=== PATIENT | male | born 1980 | race Caucasian/White ===

== ENCOUNTER 2016-12-02 13:16 | Inpatient (IN) | payer OTHER ==
[2016-12-02 14:27] VITALS: BMI 24.1
--- NOTE | 2016-12-02 15:39 | HP ---
COWS - Scale Resting Pulse: 1= [place] 81-100 Sweatin=Flushed/Facial Moisture Restless Observation: 1= Difficult to Sit Still Pupil Size: 1= Pupils >than Normal Bone or Joint Aches: 1= Mild Discomfort Runny Nose/ Eye Tearin= Nasal Congestion GI Upset > 30mins: 1= Stomach Cramp Tremor Observation: 1= Tremor [place], Not Seen Yawning Observation: 1= 1-2x During Session Anxiety or Irritability: 2=Irritable/Anxious Goose Flesh Skin: 0=Smooth Skin COWS Score: 12 Admission ROS BHS - HPI Chief Complaint: i need to stop using heroin and i need help. History of Present Illness: 36 y/o m pt with h/o heroin dep seeking detox . Exam Limitations: No Limitations - Ebola screening Have you traveled outside of the country in the last 21 days: No (N) Have you had contact with anyone from an Ebola affected area: No Have you been sick,other than usual withdrawal symptoms: No Do you have a fever: No - Review of Systems Constitutional: Changes in sleep EENT: reports: Nose Congestion Respiratory: reports: No Symptoms reported Cardiac: reports: No Symptoms Reported GI: reports: Nausea : reports: No Symptoms Reported Musculoskeletal: reports: Back Pain Neuro: reports: Headache Hematology: reports: No Symptoms Reported Psychiatric: reports: Anxious Other Systems: Reviewed and Negative Patient History - Patient Medical History Hx Anemia: No Hx Asthma: No Hx Chronic Obstructive Pulmonary Disease (COPD): No Hx Cancer: No Hx Cardiac Disorders: No Hx Congestive Heart Failure: No Hx Hypertension: No Hx Hypercholesterolemia: No Hx Pacemaker: No HX Cerebrovascular Accident: No Hx Seizures: No Hx Dementia: No Hx Diabetes: No Hx Gastrointestinal Disorders: No Hx Liver Disease: No Hx Genitourinary Disorders: No Hx Sexually Transmitted Disorders: No Hx Renal Disease (ESRD): No Hx Thyroid Disease: No Hx Human Immunodeficiency Virus (HIV): No Hx Hepatitis C: No Hx Depression: No (anxiety ) Hx Suicide Attempt: No Hx Bipolar Disorder: No Hx Schizophrenia: No - Patient Surgical History Past Surgical History: Yes Hx Orthopedic Surgery: Yes (rt knee surgery) - PPD History Documented Results: Negative w/o proof PPD to be Administered?: Yes - Reproductive History Patient is a Female of Child Bearing Age (11 -55 yrs old): No - Smoking Cessation Smoking history: Current every day smoker Have you smoked in the past 12 months: Yes Aproximately how many cigarettes per day: 20 Cigars Per Day: 0 Hx Chewing Tobacco Use: No Initiated information on smoking cessation: Yes 'Breaking Loose' booklet given: 12/02/16 - Substance & Tx. History Hx Alcohol Use: No Hx Substance Use: Yes Substance Use Type: Heroin Hx Substance Use Treatment: No - Substances Abused Heroin Route: Injection Frequency: Daily Amount used: 15 bags/d Age of first use: 36 Date of Last Use: 12/01/16 Family Disease History - Family Disease History Family History: Denies Admission Physical Exam [facility] - Vital Signs Vital Signs: Vital Signs - 24 hr 12/02/16 14:24 Temperature 98.3 F Pulse Rate 90 Respiratory 20 Rate Blood Pressure 120/74 - Physical General Appearance: Yes: Appropriately Dressed, Thin, Irritable, Sweating, Anxious HEENTM: Yes: Normocephalic, Normal Voice, LILA, Pharynx Normal, Nasal Congestion Respiratory: Yes: Chest Non-Tender, Lungs Clear, Normal Breath Sounds, No Respiratory Distress Neck: Yes: Supple, Trachea in good position Breast: Yes: Within Normal Limits Cardiology: Yes: Regular Rhythm, Regular Rate, S1, S2 Abdominal: Yes: Non Tender, Flat, Soft, Increased Bowel Sounds Genitourinary: Yes: Within Normal Limits Back: Yes: Decreased Range of Motion Musculoskeletal: Yes: Back pain Extremities: Yes: Within Normal Limits Neurological: Yes: buffer automatic II-XII NML intact, Fully Oriented, Alert, Motor Strength 5/5, Normal Response Integumentary: Yes: Moist Lymphatic: Yes: Within Normal Limits - Diagnostic (1) Opioid dependence with withdrawal Current Visit: Yes Status: Chronic (2) Nicotine dependence Current Visit: Yes Status: Chronic (3) Anxiety Current Visit: Yes Status: Chronic Cleared for Admission [facility] - Detox or Rehab [facility] Level of Care: Medically Managed Detox Regimen/Protocol: Methadone Claeared for Rehab Admission: No S Breath Alcohol Content Breath Alcohol Content: 0 Urine Drug Screen - Results Drug Screen Negative: No Urine Drug Screen Results: OPI-Opiates, MTD-Methadone
[2016-12-02] MEDS ORDERED: MAG HYDROX/AL HYDROX/SIMETH 30 ML UNIT-DOSE CUP PO PRN (15:54)
[2016-12-02] MEDS ORDERED: MAGNESIUM HYDROX 2400MG/30ML ORAL SUSPENSION 30 ML CUP PO PRN (15:54)
[2016-12-02] MEDS ORDERED: MAGNESIUM CITRATE 300 ML BOTTLE PO PRN (15:54)
[2016-12-02] MEDS ORDERED: LOPERAMIDE HCL 2 MG CAPSULE PO PRN (15:54)
[2016-12-02] MEDS ORDERED: ACETAMINOPHEN 325 MG TABLET (FP) PO PRN (15:54)
[2016-12-02] MEDS ORDERED: P-EPHED 60MG/TRIPROLIDI 2.5MG TABLET PO PRN (15:54)
[2016-12-02] MEDS ORDERED: IBUPROFEN 400 MG TABLET (FP) PO PRN (15:54)
[2016-12-02] MEDS ORDERED: MENTHOL/PHENOL 1 EACH UD MM PRN (15:54)
[2016-12-02] MEDS ORDERED: guaiFENesin/D-METHORPHAN HB 10 ML UNIT-DOSE CUPS PO PRN (15:54)
[2016-12-02] MEDS ORDERED: METHADONE HCL 10 MG TABLET (FOR DETOX USE ONLY) PO ONE ×2 (18:30→23:00)
[2016-12-02] MEDS: diazePAM 5 MG TABLET PO PRN ×2 (19:28→23:12)
[2016-12-02] MEDS: NICOTINE POLACRILEX 4 MG GUM BC PRN ×2 (20:23→22:40)
[2016-12-02] MEDS: THIAMINE HCL 100 MG TABLET (FP) PO SCH (22:35)
[2016-12-02] MEDS: diphenhydrAMINE HCL 50 MG CAPSULE PO PRN (22:35)
[2016-12-02 23:08] LABS: URINE APPEARANCE CLEAR; URINE BILIRUBIN NEGATIVE (NEGATIVE); URINE BLOOD NEGATIVE (NEGATIVE); URINE COLOR YELLOW; URINE GLUCOSE (UA) NEGATIVE (NEGATIVE); URINE KETONE NEGATIVE (NEGATIVE); URINE LEUK ESTERASE NEGATIVE (NEGATIVE); URINE NITRITE NEGATIVE (NEGATIVE); URINE PROTEIN NEGATIVE (NEGATIVE); URINE UROBILINOGEN NEGATIVE E.U./dl (0.2-1.0)
[2016-12-03] MEDS: diazePAM 5 MG TABLET PO PRN ×5 (06:11→22:32)
[2016-12-03] MEDS ORDERED: METHADONE HCL 10 MG TABLET (FOR DETOX USE ONLY) PO ONE (10:00)
[2016-12-03 10:04] LABS: MCH 28.5 pg (25.7-33.7); MCHC 32.9 g/dl (32.0-35.9); MEAN CELL VOLUME 86.8 fl (80-96); PLATELET COUNT 270 K/MM3 (134-434); RDW 14.5 % (11.9-15.9); WHITE BLOOD COUNT 7.9 K/mm3 (4.0-10.0)
[2016-12-03] MEDS: PRENATAL VITAMINS W/ FOLIC ACID TABLET (FP) PO SCH (10:25)
[2016-12-03] MEDS: NICOTINE 21 MG/24 HOURS TOPICAL PATCH TD SCH (10:25)
[2016-12-03] MEDS: NICOTINE POLACRILEX 4 MG GUM BC PRN ×4 (10:27→22:32)
[2016-12-03 10:31] LABS: ALBUMIN 4.1 g/dl (3.4-5.0); ALK PHOS 113 U/L (45-117); ANION GAP 13 (8-16); BILIRUBIN,TOTAL 0.2 mg/dL (0.2-1.0); CALCIUM 9.5 mg/dL (8.5-10.1); CO2 27 mmol/L (21-32); COCKROFT - GAULT 114.26; CREATININE 0.9 mg/dL (0.7-1.3); GLUCOSE,RANDOM 91 mg/dL (74-106); SGOT/AST 27 U/L (15-37); SGPT/ALT 27 U/L (12-78); TOT PROT 7.2 g/dl (6.4-8.2)
--- NOTE | 2016-12-03 11:49 | PN ---
BHS COWS - Scale Resting Pulse: 1= [place] 81-100 Sweatin= Chills/Flushing Restless Observation: 3= Extraneous Movement Pupil Size: 2= Moderately Dilated Bone or Joint Aches: 4=Acute Joint/Muscle Pain Runny Nose/ Eye Tearin= Nasal Congestion GI Upset > 30mins: 1= Stomach Cramp Tremor Observation of Outstretched Hands: 1= Tremor [place], Not Seen Yawning Observation: 2= >3x During Session Anxiety or Irritability: 2=Irritable/Anxious Goose Flesh Skin: 0=Smooth Skin COWS Score: 18 BHS Progress Note (SOAP) Subjective: ANXIETY,SWEATS/CHILLS,INTERMITTENT SLEEP. Objective: 12/03/16 11:48 Vital Signs Temperature 95.6 F L 12/03/16 10:20 Pulse Rate 97 H 12/03/16 10:20 Respiratory Rate 18 12/03/16 10:20 Blood Pressure 112/76 12/03/16 10:20 O2 Sat by Pulse Oximetry (%) Laboratory Last Values WBC 7.9 K/mm3 (4.0-10.0) 12/03/16 06:20 RBC 5.03 M/mm3 (4.00-5.60) 12/03/16 06:20 Hgb 14.4 GM/dL (11.7-16.9) 12/03/16 06:20 Hct 43.7 % (35.4-49) 12/03/16 06:20 MCV 86.8 fl (80-96) 12/03/16 06:20 MCHC 32.9 g/dl (32.0-35.9) 12/03/16 06:20 RDW 14.5 % (11.9-15.9) 12/03/16 06:20 Plt Count 270 K/MM3 (134-434) 12/03/16 06:20 MPV 9.0 fl (7.5-11.1) 12/03/16 06:20 Sodium 142 mmol/L (136-145) 12/03/16 06:20 Potassium 4.6 mmol/L (3.5-5.1) 12/03/16 06:20 Chloride 102 mmol/L (98-107) 12/03/16 06:20 Carbon Dioxide 27 mmol/L (21-32) 12/03/16 06:20 Anion Gap 13 (8-16) 12/03/16 06:20 BUN 13 mg/dL (7-18) 12/03/16 06:20 Creatinine 0.9 mg/dL (0.7-1.3) 12/03/16 06:20 Creat Clearance w eGFR > 60 (>60) 12/03/16 06:20 Random Glucose 91 mg/dL (74-106) 12/03/16 06:20 Calcium 9.5 mg/dL (8.5-10.1) 12/03/16 06:20 Total Bilirubin 0.2 mg/dL (0.2-1.0) 12/03/16 06:20 AST 27 U/L (15-37) 12/03/16 06:20 ALT 27 U/L (12-78) 12/03/16 06:20 Alkaline Phosphatase 113 U/L (45-117) 12/03/16 06:20 Total Protein 7.2 g/dl (6.4-8.2) 12/03/16 06:20 Albumin 4.1 g/dl (3.4-5.0) 12/03/16 06:20 Urine Color Yellow 12/02/16 21:47 Urine Appearance Clear 12/02/16 21:47 Urine pH 5.0 (5.0-8.0) 12/02/16 21:47 Ur Specific [place] 1.028 (1.001-1.035) 12/02/16 21:47 Urine Protein Negative (NEGATIVE) 12/02/16 21:47 Urine Glucose (UA) Negative (NEGATIVE) 12/02/16 21:47 Urine Ketones Negative (NEGATIVE) 12/02/16 21:47 Urine Blood Negative (NEGATIVE) 12/02/16 21:47 Urine Nitrite Negative (NEGATIVE) 12/02/16 21:47 Urine Bilirubin Negative (NEGATIVE) 12/02/16 21:47 Urine Urobilinogen Negative E.U./dl (0.2-1.0) 12/02/16 21:47 Ur Leukocyte Esterase Negative (NEGATIVE) 12/02/16 21:47 Assessment: 12/03/16 11:48 WITHDRAWAL SX Plan: CONTINUE DETOX
--- NOTE | 2016-12-03 12:34 | EKG ---
Test Reason : Blood Pressure : / mmHG Vent. Rate : 073 BPM Atrial Rate : 073 BPM P-R Int : 178 ms QRS Dur : 080 ms QT Int : 342 ms P-R-T Axes : 030 063 036 degrees QTc Int : 376 ms NORMAL SINUS RHYTHM NORMAL ECG NO PREVIOUS ECGS AVAILABLE Confirmed by ADRIANNA STODDARD, TERRI ([id number]) on 12/03/2016 12:33:49 PM Referred By: Ruddy Mayorga Confirmed By:TERRI RODAS MD
--- NOTE | 2016-12-03 14:26 | CONSULT ---
[facility] Psychiatric Consult - Data Date of interview: 12/03/16 Admission source: [facility] Identifying data: First admission to [facility] for this 36 y/o male seeking detox treatment for heroin dependence.Patient is single,a father of one, homeless,unemployed and supported on [facility] benefits. Substance Abuse History: - Smoking Cessation. Smoking history: Current every day smoker. Have you smoked in the past 12 months: Yes. Aproximately how many cigarettes per day: 20. Cigars Per Day: 0. Hx Chewing Tobacco Use: No. Initiated information on smoking cessation: Yes. 'Breaking Loose' booklet given : 12/02/16. - Substance & Tx. History. Hx Alcohol Use: No. Hx Substance Use: Yes. Substance Use Type: Heroin. Hx Substance Use Treatment: No. - Substances Abused. Heroin. Route: Injection. Frequency: Daily. Amount used: 15 bags/d. Age of first use: 36. Date of Last Use: 12/01/16. Confirmed by patient. Medical History: Patient endorses good general health. Psychiatric History: Patient denies. Physical/Sexual Abuse/Trauma History: Patient denies. Additional Comment: Urine Drug Screen Results: OPI-Opiates, MTD-Methadone.Noted. Mental Status Exam - Mental Status Exam Alert and Oriented to: Time, Place, Person Cognitive Function: Good Patient Appearance: Well Groomed Mood: Hopeful, Euthymic Affect: Appropriate, Normal Range Patient Behavior: Fatigued, Appropriate, Cooperative Speech Pattern: Clear, Appropriate Voice Loudness: Normal Thought Process: Goal Oriented Thought Disorder: Not Present Hallucinations: Denies Suicidal Ideation: Denies Homicidal Ideation: Denies Insight/Judgement: Fair Sleep: Fair Appetite: Good Muscle strength/Tone: Normal Gait/Station: Normal Psychiatric Findings - Problem List ([place] 1, 2,3) (1) Opioid dependence with withdrawal Current Visit: Yes Status: Acute (2) Nicotine dependence Current Visit: Yes Status: Acute - Initial Treatment Plan Initial Treatment Plan: Psychoeducation.Detoxification.Observation.
[2016-12-03 17:05] LABS: HIV 1 & 2 AB NEGATIVE; HIV 1 AGp24 NEGATIVE
[2016-12-03] MEDS: THIAMINE HCL 100 MG TABLET (FP) PO SCH (22:30)
[2016-12-03] MEDS: diphenhydrAMINE HCL 50 MG CAPSULE PO PRN (22:30)
[2016-12-04] MEDS: diazePAM 5 MG TABLET PO PRN ×5 (05:48→22:57)
[2016-12-04] MEDS ORDERED: METHADONE HCL 5 MG TABLET (FOR DETOX USE ONLY) PO ONE (10:00)
--- NOTE | 2016-12-04 10:26 | PN ---
S COWS - Scale Resting Pulse: 0= [place] 80 or Below Sweatin= Chills/Flushing Restless Observation: 3= Extraneous Movement Pupil Size: 2= Moderately Dilated Bone or Joint Aches: 4=Acute Joint/Muscle Pain Runny Nose/ Eye Tearin= Nasal Congestion GI Upset > 30mins: 1= Stomach Cramp Tremor Observation of Outstretched Hands: 2= Slight Tremor Visible Yawning Observation: 1= 1-2x During Session Anxiety or Irritability: 2=Irritable/Anxious Goose Flesh Skin: 0=Smooth Skin COWS Score: 17 BHS Progress Note (SOAP) Subjective: ANXIETY,TREMORS,SWEATS,INTERMITTENT SLEEP-BENADRYL NOT EFFECTIVE. WANTS F/U FOR INSOMNIA Objective: 12/04/16 10:25 Vital Signs Temperature 97.6 F 12/04/16 09:25 Pulse Rate 89 12/04/16 09:25 Respiratory Rate 18 12/04/16 09:25 Blood Pressure 123/81 12/04/16 09:25 O2 Sat by Pulse Oximetry (%) Laboratory Last Values WBC 7.9 K/mm3 (4.0-10.0) 12/03/16 06:20 RBC 5.03 M/mm3 (4.00-5.60) 12/03/16 06:20 Hgb 14.4 GM/dL (11.7-16.9) 12/03/16 06:20 Hct 43.7 % (35.4-49) 12/03/16 06:20 MCV 86.8 fl (80-96) 12/03/16 06:20 MCHC 32.9 g/dl (32.0-35.9) 12/03/16 06:20 RDW 14.5 % (11.9-15.9) 12/03/16 06:20 Plt Count 270 K/MM3 (134-434) 12/03/16 06:20 MPV 9.0 fl (7.5-11.1) 12/03/16 06:20 Sodium 142 mmol/L (136-145) 12/03/16 06:20 Potassium 4.6 mmol/L (3.5-5.1) 12/03/16 06:20 Chloride 102 mmol/L (98-107) 12/03/16 06:20 Carbon Dioxide 27 mmol/L (21-32) 12/03/16 06:20 Anion Gap 13 (8-16) 12/03/16 06:20 BUN 13 mg/dL (7-18) 12/03/16 06:20 Creatinine 0.9 mg/dL (0.7-1.3) 12/03/16 06:20 Creat Clearance w eGFR > 60 (>60) 12/03/16 06:20 Random Glucose 91 mg/dL (74-106) 12/03/16 06:20 Calcium 9.5 mg/dL (8.5-10.1) 12/03/16 06:20 Total Bilirubin 0.2 mg/dL (0.2-1.0) 12/03/16 06:20 AST 27 U/L (15-37) 12/03/16 06:20 ALT 27 U/L (12-78) 12/03/16 06:20 Alkaline Phosphatase 113 U/L (45-117) 12/03/16 06:20 Total Protein 7.2 g/dl (6.4-8.2) 12/03/16 06:20 Albumin 4.1 g/dl (3.4-5.0) 12/03/16 06:20 Urine Color Yellow 12/02/16 21:47 Urine Appearance Clear 12/02/16 21:47 Urine pH 5.0 (5.0-8.0) 12/02/16 21:47 Ur Specific [place] 1.028 (1.001-1.035) 12/02/16 21:47 Urine Protein Negative (NEGATIVE) 12/02/16 21:47 Urine Glucose (UA) Negative (NEGATIVE) 12/02/16 21:47 Urine Ketones Negative (NEGATIVE) 12/02/16 21:47 Urine Blood Negative (NEGATIVE) 12/02/16 21:47 Urine Nitrite Negative (NEGATIVE) 12/02/16 21:47 Urine Bilirubin Negative (NEGATIVE) 12/02/16 21:47 Urine Urobilinogen Negative E.U./dl (0.2-1.0) 12/02/16 21:47 Ur Leukocyte Esterase Negative (NEGATIVE) 12/02/16 21:47 RPR Titer Nonreactive (NONREACTIVE) 12/03/16 06:20 HIV 1&2 Antibody Screen Negative 12/03/16 06:20 HIV P24 Antigen Negative 12/03/16 06:20 Assessment: 12/04/16 10:25 WITHDRAWAL SX Plan: CONTINUE DETOX F/U WITH PSYCH RE:INSOMNIA WORKUP
[2016-12-04] MEDS: PRENATAL VITAMINS W/ FOLIC ACID TABLET (FP) PO SCH (10:37)
[2016-12-04] MEDS: NICOTINE 21 MG/24 HOURS TOPICAL PATCH TD SCH (10:38)
[2016-12-04] MEDS: NICOTINE POLACRILEX 4 MG GUM BC PRN ×4 (13:04→23:00)
[2016-12-04] MEDS: diphenhydrAMINE HCL 50 MG CAPSULE PO PRN (22:19)
[2016-12-04] MEDS: THIAMINE HCL 100 MG TABLET (FP) PO SCH (22:20)
[2016-12-05] MEDS: diazePAM 5 MG TABLET PO PRN ×3 (03:15→14:32)
[2016-12-05] MEDS: PRENATAL VITAMINS W/ FOLIC ACID TABLET (FP) PO SCH (09:14)
[2016-12-05] MEDS: NICOTINE 21 MG/24 HOURS TOPICAL PATCH TD SCH (09:15)
[2016-12-05] MEDS ORDERED: METHADONE HCL 5 MG TABLET (FOR DETOX USE ONLY) PO ONE (10:00)
[2016-12-05] MEDS ORDERED: METHADONE HCL 10 MG TABLET (FOR DETOX USE ONLY) PO ONE (10:00)
--- NOTE | 2016-12-05 13:30 | PN ---
BHS Progress Note (SOAP) Subjective: Sweating,interrupted sleep,restless Objective: 12/05/16 13:29 Vital Signs - 8 hr 12/05/16 12/05/16 06:44 10:35 Temperature 96.0 F L 97.1 F L Pulse Rate 74 92 H Respiratory 18 20 Rate Blood Pressure 114/81 119/81 Laboratory Tests 12/02/16 12/03/16 12/03/16 21:47 06:20 06:20 WBC 7.9 RBC 5.03 Hgb 14.4 Hct 43.7 MCV 86.8 MCHC 32.9 RDW 14.5 Plt Count 270 MPV 9.0 Sodium Potassium Chloride Carbon Dioxide Anion Gap BUN Creatinine Creat Clearance w eGFR Random Glucose Calcium Total Bilirubin AST ALT Alkaline Phosphatase Total Protein Albumin Urine Color Yellow Urine Appearance Clear Urine pH 5.0 Ur Specific [place] 1.028 Urine Protein Negative Urine Glucose (UA) Negative Urine Ketones Negative Urine Blood Negative Urine Nitrite Negative Urine Bilirubin Negative Urine Urobilinogen Negative Ur Leukocyte Esterase Negative RPR Titer HIV 1&2 Antibody Screen Negative HIV P24 Antigen Negative 12/03/16 12/03/16 06:20 06:20 WBC RBC Hgb Hct MCV MCHC RDW Plt Count MPV Sodium 142 Potassium 4.6 Chloride 102 Carbon Dioxide 27 Anion Gap 13 BUN 13 Creatinine 0.9 Creat Clearance w eGFR > 60 Random Glucose 91 Calcium 9.5 Total Bilirubin 0.2 AST 27 ALT 27 Alkaline Phosphatase 113 Total Protein 7.2 Albumin 4.1 Urine Color Urine Appearance Urine pH Ur Specific [place] Urine Protein Urine Glucose (UA) Urine Ketones Urine Blood Urine Nitrite Urine Bilirubin Urine Urobilinogen Ur Leukocyte Esterase RPR Titer Nonreactive HIV 1&2 Antibody Screen HIV P24 Antigen labs noted Assessment: 12/05/16 13:29 Withdrawal sx. Plan: Continue detox
--- NOTE | 2016-12-05 14:11 | PN ---
DOM[facility] Progress Note Note: Psychiatry Attending's note : Patient seen. Complaint : insomnia. Intervention : .Education about sleep hygiene. .Ambien 10 mg po hs. Informed of risk of parasomnias. No script for ambien at discharge. Mr Motley agrees with this careplan.
[2016-12-05] MEDS: NICOTINE POLACRILEX 4 MG GUM BC PRN ×3 (14:32→20:28)
[2016-12-05] MEDS: hydrOXYzine PAMOATE 25 MG CAPSULE (FP) PO PRN ×2 (17:20→22:22)
[2016-12-05] MEDS ORDERED: ZOLPIDEM TARTRATE 10 MG TABLET (PARK CARE ONLY) PO PRN (22:00)
[2016-12-05] MEDS: THIAMINE HCL 100 MG TABLET (FP) PO SCH (22:20)
[2016-12-06] MEDS ORDERED: METHADONE HCL 5 MG TABLET (FOR DETOX USE ONLY) PO ONE (06:00)
[2016-12-06] MEDS: hydrOXYzine PAMOATE 25 MG CAPSULE (FP) PO PRN (06:03)
[2016-12-06 06:34] VITALS: BP 118/77; PULSE 86; TEMP 95.9
[2016-12-06] MEDS ORDERED: METHADONE HCL 10 MG TABLET (FOR DETOX USE ONLY) PO ONE (10:00)
--- NOTE | 2016-12-06 17:02 | DS ---
[facility] Detox Discharge Summary Admission Date: 12/02/16 Discharge Date: 12/06/16 - History Present History: Opioid Dependence Additional Comments: ADVISED PATIENT TO FOLLOW-UP WITH [facility] AFTER DISCHARGE FROM DETOX FOR GENERAL MEDICAL ASSESSMENT AND FOR ABNORMAL ADMISSION LAB VALUES. Pertinent Past History: Anxiety. - Physical Exam Results Vital Signs: Vital Signs Temperature 95.9 F L 12/06/16 06:34 Pulse Rate 86 12/06/16 06:34 Respiratory Rate 16 12/06/16 06:34 Blood Pressure 118/77 12/06/16 06:34 O2 Sat by Pulse Oximetry (%) Pertinent Admission Physical Exam Findings: WITHDRAWAL SYMPTOMS. Laboratory Last Values WBC 7.9 K/mm3 (4.0-10.0) 12/03/16 06:20 RBC 5.03 M/mm3 (4.00-5.60) 12/03/16 06:20 Hgb 14.4 GM/dL (11.7-16.9) 12/03/16 06:20 Hct 43.7 % (35.4-49) 12/03/16 06:20 MCV 86.8 fl (80-96) 12/03/16 06:20 MCHC 32.9 g/dl (32.0-35.9) 12/03/16 06:20 RDW 14.5 % (11.9-15.9) 12/03/16 06:20 Plt Count 270 K/MM3 (134-434) 12/03/16 06:20 MPV 9.0 fl (7.5-11.1) 12/03/16 06:20 Sodium 142 mmol/L (136-145) 12/03/16 06:20 Potassium 4.6 mmol/L (3.5-5.1) 12/03/16 06:20 Chloride 102 mmol/L (98-107) 12/03/16 06:20 Carbon Dioxide 27 mmol/L (21-32) 12/03/16 06:20 Anion Gap 13 (8-16) 12/03/16 06:20 BUN 13 mg/dL (7-18) 12/03/16 06:20 Creatinine 0.9 mg/dL (0.7-1.3) 12/03/16 06:20 Creat Clearance w eGFR > 60 (>60) 12/03/16 06:20 Random Glucose 91 mg/dL (74-106) 12/03/16 06:20 Calcium 9.5 mg/dL (8.5-10.1) 12/03/16 06:20 Total Bilirubin 0.2 mg/dL (0.2-1.0) 12/03/16 06:20 AST 27 U/L (15-37) 12/03/16 06:20 ALT 27 U/L (12-78) 12/03/16 06:20 Alkaline Phosphatase 113 U/L (45-117) 12/03/16 06:20 Total Protein 7.2 g/dl (6.4-8.2) 12/03/16 06:20 Albumin 4.1 g/dl (3.4-5.0) 12/03/16 06:20 Urine Color Yellow 12/02/16 21:47 Urine Appearance Clear 12/02/16 21:47 Urine pH 5.0 (5.0-8.0) 12/02/16 21:47 Ur Specific [place] 1.028 (1.001-1.035) 12/02/16 21:47 Urine Protein Negative (NEGATIVE) 12/02/16 21:47 Urine Glucose (UA) Negative (NEGATIVE) 12/02/16 21:47 Urine Ketones Negative (NEGATIVE) 12/02/16 21:47 Urine Blood Negative (NEGATIVE) 12/02/16 21:47 Urine Nitrite Negative (NEGATIVE) 12/02/16 21:47 Urine Bilirubin Negative (NEGATIVE) 12/02/16 21:47 Urine Urobilinogen Negative E.U./dl (0.2-1.0) 12/02/16 21:47 Ur Leukocyte Esterase Negative (NEGATIVE) 12/02/16 21:47 RPR Titer Nonreactive (NONREACTIVE) 12/03/16 06:20 HIV 1&2 Antibody Screen Negative 12/03/16 06:20 HIV P24 Antigen Negative 12/03/16 06:20 LABS NOTED. - Treatment Hospital Course: Detox Protocol Followed, Detoxed Safely, Responded well, Discharged Condition Good Patient has Accepted a Rehab Referral to: NO - PT. DECLINES TO DO SO AT THIS TIME; NA/12-STEP PROGRAMS RECOMMENDED. - Medication Discharge Medications: Ambulatory Orders NK [No Known Home Medication] 12/02/16 - Diagnosis (1) Nicotine dependence Status: Chronic Qualifiers: Nicotine product type: cigarettes Substance use status: uncomplicated Qualified Code(s): F17.210 - Nicotine dependence, cigarettes, uncomplicated (2) Opioid dependence with withdrawal Status: Acute (3) Anxiety Status: Chronic - AMA Did Patient Leave Against Medical Advice: No
[2016-12-07] MEDS ORDERED: METHADONE HCL 5 MG TABLET (FOR DETOX USE ONLY) PO ONE (06:00)
== END 2016-12-06 09:46 | disposition home or self-care (01) | DRG 897 ==
LOC: YASAS 13:16 → Y3N 18:13
PROVIDERS: ADMIT Internal Medicine; ATTEND Internal Medicine
PROC: HZ2ZZZZ Detoxification Services for Substance Abuse Treatment (ICD-10-PCS; principal; 2016-12-06)
DX: F11.23 Opioid dependence with withdrawal (principal); F17.210 Nicotine dependence, cigarettes, uncomplicated; F41.9 Anxiety disorder, unspecified
CPT/HCPCS: 36415; 80053; 81003; 85027; 86593; 87389; 93005; 93010

== ENCOUNTER 2017-10-05 14:56 | Inpatient (IN) | payer OTHER ==
[2017-10-05 16:00] VITALS: BMI 26.3
--- NOTE | 2017-10-05 20:45 | HP ---
COWS - Scale Resting Pulse: 0= [place] 80 or Below Sweatin= Chills/Flushing Restless Observation: 1= Difficult to Sit Still Pupil Size: 1= Pupils >than Normal Bone or Joint Aches: 2= Severe Diffuse Aches Runny Nose/ Eye Tearin= Runny Nose/Eyes GI Upset > 30mins: 1= Stomach Cramp Tremor Observation: 0= None Yawning Observation: 1= 1-2x During Session Anxiety or Irritability: 2=Irritable/Anxious Goose Flesh Skin: 3=Piloerection COWS Score: 14 CIWA Score - CIWA Score Nausea/Vomitin-Mild Nausea/No Vomiting Muscle Tremors: 1-None Visible, but [place] Anxiety: 2 Agitation: 2 Paroxysmal Sweats: 2 Orientation: 0-Oriented Tacttile Disturbances: 1-Very Mild Itch/Numbness Auditory Disturbances: 1-Very Mild Visual Disturbances: 1-Very Mild Sensitivity Headache: 2-Mild CIWA-Ar Total Score: 13 Admission ROS BHS - HPI Chief Complaint: WITHDRAWAL SYMPTOMS Allergies/Adverse Reactions: Allergies Allergy/AdvReac Type Severity Reaction Status Date / Time No Known Allergies Allergy Verified 10/05/17 18:39 History of Present Illness: 37 Y.O. MAN WITH A HISTORY OF OPIOID AND ALCOHOL DEPENDENCE IS HERE SEEKING DETOX. HE REPORTS HE WAS LAST AT [facility] IN November, BUT LEFT AMA. DOES NOT HAVE A SIGNIFICANT PERIOD OF DRUG ABSTINENCE. - Ebola screening Have you traveled outside of the country in the last 21 days: No Have you had contact with anyone from an Ebola affected area: No Have you been sick,other than usual withdrawal symptoms: No - Review of Systems Constitutional: Chills, Loss of Appetite, Changes in sleep, Unexplained wgt Loss EENT: reports: Tearing, Nose Congestion Respiratory: reports: No Symptoms reported Cardiac: reports: No Symptoms Reported GI: reports: Abdominal cramping : reports: No Symptoms Reported Musculoskeletal: reports: Back Pain Integumentary: reports: No Symptoms Reported Endocrine: reports: No Symptoms Reported Hematology: reports: No Symptoms Reported Psychiatric: reports: Orientated x3, Anxious, other (H/O Panic Attacks) Other Systems: Reviewed and Negative Patient History - Patient Medical History Hx Anemia: No Hx Asthma: No Hx Chronic Obstructive Pulmonary Disease (COPD): No Hx Cancer: No Hx Cardiac Disorders: No Hx Congestive Heart Failure: No Hx Hypertension: No Hx Hypercholesterolemia: No Hx Pacemaker: No HX Cerebrovascular Accident: No Hx Seizures: No Hx Dementia: No Hx Diabetes: No Hx Gastrointestinal Disorders: No Hx Liver Disease: No Hx Genitourinary Disorders: No Hx Sexually Transmitted Disorders: No Hx Renal Disease (ESRD): No Hx Thyroid Disease: No Hx Human Immunodeficiency Virus (HIV): No Hx Hepatitis C: No Hx Depression: Yes (Anxiety and panic attacks ) Hx Suicide Attempt: No Hx Bipolar Disorder: No Hx Schizophrenia: No - Patient Surgical History Past Surgical History: Yes Hx Neurologic Surgery: No Hx Cataract Extraction: No Hx Cardiac Surgery: No Hx Lung Surgery: No Hx Breast Surgery: No Hx Breast Biopsy: No Hx Abdominal Surgery: No Hx Appendectomy: No Hx Cholecystectomy: No Hx Genitourinary Surgery: No Hx Section: No Hx Orthopedic Surgery: Yes (L knee surgery (2017)) Anesthesia Reaction: No - PPD History Previous Implant?: Yes Implanted On Prior [facility] Admission?: Yes Date: 12/04/16 Results: 0 PPD to be Administered?: No - Reproductive History Patient is a Female of Child Bearing Age (11 -55 yrs old): No - Smoking Cessation Smoking history: Current every day smoker Have you smoked in the past 12 months: Yes Aproximately how many cigarettes per day: 20 Cigars Per Day: 0 Hx Chewing Tobacco Use: No Initiated information on smoking cessation: Yes 'Breaking Loose' booklet given: 10/05/17 - Substance & Tx. History Hx Alcohol Use: Yes Hx Substance Use: Yes Substance Use Type: Alcohol, Heroin Hx Substance Use Treatment: Yes (Detox: 12/2016) - Substances Abused Alcohol Route: Oral Frequency: Daily Amount used: liqour- 1 pint, Age of first use: 17 Date of Last Use: 10/05/17 Heroin Route: Injection Frequency: Daily Amount used: 20 bags Age of first use: 36 Date of Last Use: 10/05/17 Family Disease History - Family Disease History Family Disease History: Diabetes: Father (Alcohol Dependence), Mother, Heart Disease: Father, Other: Father Admission Physical Exam BHS - Vital Signs Vital Signs: Vital Signs - 24 hr 10/05/17 15:58 Temperature 96.2 F L Pulse Rate 73 Respiratory 18 Rate Blood Pressure 134/79 - Physical General Appearance: Yes: Anxious HEENTM: Yes: Hearing grossly Normal, Normal ENT Inspection, Normocephalic, Normal Voice Respiratory: Yes: Chest Non-Tender, Lungs Clear, Normal Breath Sounds, No Respiratory Distress, No Accessory Muscle Use Neck: Yes: No masses,lesions,Nodules, Trachea in good position Breast: Yes: Breast Exam Deferred Cardiology: Yes: Regular Rhythm, Regular Rate Abdominal: Yes: Normal Bowel Sounds, Non Tender, Flat Genitourinary: Yes: Other (NO COMPLAINTS REPORTED) Back: Yes: Normal Inspection Musculoskeletal: Yes: full range of Motion, Gait Steady, Pelvis Stable Extremities: Yes: Normal Capillary Refill, Normal Inspection, Normal Range of Motion, Non-Tender Neurological: Yes: Alert, Motor Strength 5/5, Normal Mood/Affect, Normal Response Integumentary: Yes: Normal Color, Dry, Warm, Track [place] Lymphatic: Yes: Within Normal Limits - Diagnostic (1) Alcohol dependence with uncomplicated withdrawal Current Visit: Yes Status: Chronic (2) Opioid dependence with withdrawal Current Visit: Yes Status: Chronic (3) Nicotine dependence Current Visit: Yes Status: Chronic Qualifiers: Nicotine product type: cigarettes Substance use status: uncomplicated Qualified Code(s): F17.210 - Nicotine dependence, cigarettes, uncomplicated Cleared for Admission [facility] - Detox or Rehab [facility] Level of Care: Medically Managed Detox Regimen/Protocol: Methadone/Valium [facility] Breath Alcohol Content Breath Alcohol Content: 0 Urine Drug Screen - Results Drug Screen Negative: No Urine Drug Screen Results: THC-Marijuana, OPI-Opiates, MTD-Methadone, TCA- Tricyclic Antidepress, OXY-Oxycodone
[2017-10-05] MEDS ORDERED: diphenhydrAMINE HCL 25 MG CAPSULE (FP) PO PRN (20:51)
[2017-10-05] MEDS ORDERED: ACETAMINOPHEN 325 MG TABLET (FP) PO PRN (20:52)
[2017-10-05] MEDS ORDERED: MENTHOL/PHENOL 1 EACH UD MM PRN (20:52)
[2017-10-05] MEDS ORDERED: METHADONE HCL 10 MG TABLET (FOR DETOX USE ONLY) PO ONE ×2 (20:52→23:00)
[2017-10-05] MEDS ORDERED: diazePAM 5 MG TABLET PO ONE (20:52)
[2017-10-05] MEDS ORDERED: MAGNESIUM CITRATE 300 ML BOTTLE PO PRN (20:52)
[2017-10-05] MEDS ORDERED: LOPERAMIDE HCL 2 MG CAPSULE PO PRN (20:52)
[2017-10-05] MEDS ORDERED: P-EPHED 60MG/TRIPROLIDI 2.5MG TABLET PO PRN (20:52)
[2017-10-05] MEDS ORDERED: hydrOXYzine PAMOATE 50 MG CAPSULE (FP) PO PRN (20:52)
[2017-10-05] MEDS ORDERED: MAG HYDROX/AL HYDROX/SIMETH 30 ML UNIT-DOSE CUP PO PRN (20:52)
[2017-10-05] MEDS ORDERED: IBUPROFEN 400 MG TABLET (FP) PO PRN (20:52)
[2017-10-05] MEDS ORDERED: MAGNESIUM HYDROX 2400MG/30ML ORAL SUSPENSION 30 ML CUP PO PRN (20:52)
[2017-10-05] MEDS ORDERED: NICOTINE POLACRILEX 2 MG GUM BC PRN (20:52)
[2017-10-05] MEDS ORDERED: guaiFENesin/D-METHORPHAN HB 10 ML UNIT-DOSE CUPS PO PRN (20:52)
[2017-10-05] MEDS ORDERED: THIAMINE HCL 100 MG TABLET (FP) PO SCH (22:00)
[2017-10-05] MEDS: diazePAM 5 MG TABLET PO SCH (22:40)
[2017-10-06] MEDS: diazePAM 5 MG TABLET PO SCH ×2 (05:10→15:21)
[2017-10-06] MEDS ORDERED: PRENATAL VITAMINS W/ FOLIC ACID TABLET (FP) PO SCH (10:00)
[2017-10-06] MEDS ORDERED: NICOTINE 21 MG/24 HOURS TOPICAL PATCH TD SCH (10:00)
[2017-10-06] MEDS ORDERED: METHADONE HCL 10 MG TABLET (FOR DETOX USE ONLY) PO SCH (10:00)
[2017-10-06 10:03] LABS: HEMATOCRIT 42.1 % (35.4-49); HEMOGLOBIN 13.8 GM/dL (11.7-16.9); MCH 28.2 pg (25.7-33.7); MCHC 32.8 g/dl (32.0-35.9); MEAN PLT VOLUME 8.5 fl (7.5-11.1); PLATELET COUNT 238 K/MM3 (134-434); RDW 14.7 % (11.9-15.9); WHITE BLOOD COUNT 7.8 K/mm3 (4.0-10.0)
--- NOTE | 2017-10-06 10:25 | PN ---
[facility] CIWA - CIWA Score Nausea/Vomitin-No Nausea/No Vomiting Muscle Tremors: 4-Moderate,w/Arms Extend Anxiety: 4-Mod. Anxious/Guarded Agitation: 4-Moderately Restless Paroxysmal Sweats: 1-Minimal Palms Moist Orientation: 0-Oriented Tacttile Disturbances: 3-Moderate Itch/Numb/Burn Auditory Disturbances: 0-None Visual Disturbances: 0-None Headache: 0-None Present CIWA-Ar Total Score: 16 S COWS - Scale Resting Pulse: 0= SD 80 or Below Sweatin= Chills/Flushing Restless Observation: 3= Extraneous Movement Pupil Size: 0= Normal to Room Light Bone or Joint Aches: 4=Acute Joint/Muscle Pain Runny Nose/ Eye Tearin= None GI Upset > 30mins: 0= None Tremor Observation of Outstretched Hands: 2= Slight Tremor Visible Yawning Observation: 1= 1-2x During Session Anxiety or Irritability: 2=Irritable/Anxious Goose Flesh Skin: 0=Smooth Skin COWS Score: 13 S Progress Note (SOAP) Subjective: ANXIETY,SWEATS/CHILLS,INTERMITTENT SLEEP. Objective: 10/06/17 10:24 Vital Signs Temperature 96.7 F L 10/06/17 09:42 Pulse Rate 76 10/06/17 09:42 Respiratory Rate 18 10/06/17 09:42 Blood Pressure 116/77 10/06/17 09:42 O2 Sat by Pulse Oximetry (%) Laboratory Last Values WBC 7.8 K/mm3 (4.0-10.0) 10/06/17 07:30 RBC 4.90 M/mm3 (4.00-5.60) 10/06/17 07:30 Hgb 13.8 GM/dL (11.7-16.9) 10/06/17 07:30 Hct 42.1 % (35.4-49) 10/06/17 07:30 MCV 86.0 fl (80-96) 10/06/17 07:30 MCH 28.2 pg (25.7-33.7) 10/06/17 07:30 MCHC 32.8 g/dl (32.0-35.9) 10/06/17 07:30 RDW 14.7 % (11.9-15.9) 10/06/17 07:30 Plt Count 238 K/MM3 (134-434) 10/06/17 07:30 MPV 8.5 fl (7.5-11.1) 10/06/17 07:30 OTHER LABS PENDING. Assessment: 10/06/17 10:25 WITHDRAWAL SX Plan: CONTINUE DETOX
[2017-10-06 10:27] LABS: ALBUMIN 3.5 g/dl (3.4-5.0); ALK PHOS 84 U/L (45-117); ANION GAP 7 (8-16); BILIRUBIN,TOTAL 0.1 mg/dL (0.2-1.0); BLOOD UREA NITROGEN 13 mg/dL (7-18); CALCIUM 8.8 mg/dL (8.5-10.1); CHLORIDE 104 mmol/L (98-107); CO2 32 mmol/L (21-32); GLUCOSE,RANDOM 83 mg/dL (74-106); POTASSIUM 4.4 mmol/L (3.5-5.1); SGOT/AST 16 U/L (15-37); SGPT/ALT 25 U/L (12-78); SODIUM 143 mmol/L (136-145); TOT PROT 6.3 g/dl (6.4-8.2)
[2017-10-06] MEDS: diazePAM 5 MG TABLET PO PRN ×2 (12:39→17:18)
--- NOTE | 2017-10-06 13:58 | EKG ---
Test Reason : Blood Pressure : / mmHG Vent. Rate : 073 BPM Atrial Rate : 073 BPM P-R Int : 182 ms QRS Dur : 072 ms QT Int : 346 ms P-R-T Axes : 041 056 026 degrees QTc Int : 381 ms NORMAL SINUS RHYTHM NORMAL ECG WHEN COMPARED WITH ECG OF 02-DEC-2016 18:37, NO SIGNIFICANT CHANGE WAS FOUND Confirmed by MD Reyez Edward ([id number]) on 10/06/2017 1:57:58 PM Referred By: Confirmed By:Yaniv Reyez MD
[2017-10-06 17:54] LABS: URINE APPEARANCE TURBID; URINE BILIRUBIN NEGATIVE (NEGATIVE); URINE BLOOD NEGATIVE (NEGATIVE); URINE COLOR AMBER; URINE GLUCOSE (UA) NEGATIVE (NEGATIVE); URINE KETONE NEGATIVE (NEGATIVE); URINE LEUK ESTERASE NEGATIVE (NEGATIVE); URINE NITRITE NEGATIVE (NEGATIVE); URINE PROTEIN NEGATIVE (NEGATIVE); URINE UROBILINOGEN NEGATIVE mg/dL (0.2-1.0)
[2017-10-06 18:30] VITALS: BP 113/68; PULSE 78; TEMP 97
--- NOTE | 2017-10-06 18:36 | DS ---
[facility] Detox Discharge Summary Admission Date: 10/05/17 Discharge Date: 10/06/17 - History Present History: Alcohol Dependence, Opioid Dependence - Physical Exam Results Vital Signs: Vital Signs Temperature 97.0 F L 10/06/17 18:29 Pulse Rate 78 10/06/17 18:29 Respiratory Rate 18 10/06/17 18:29 Blood Pressure 113/68 10/06/17 18:29 O2 Sat by Pulse Oximetry (%) Pertinent Admission Physical Exam Findings: Laboratory Last Values WBC 7.8 K/mm3 (4.0-10.0) 10/06/17 07:30 RBC 4.90 M/mm3 (4.00-5.60) 10/06/17 07:30 Hgb 13.8 GM/dL (11.7-16.9) 10/06/17 07:30 Hct 42.1 % (35.4-49) 10/06/17 07:30 MCV 86.0 fl (80-96) 10/06/17 07:30 MCH 28.2 pg (25.7-33.7) 10/06/17 07:30 MCHC 32.8 g/dl (32.0-35.9) 10/06/17 07:30 RDW 14.7 % (11.9-15.9) 10/06/17 07:30 Plt Count 238 K/MM3 (134-434) 10/06/17 07:30 MPV 8.5 fl (7.5-11.1) 10/06/17 07:30 Sodium 143 mmol/L (136-145) 10/06/17 07:30 Potassium 4.4 mmol/L (3.5-5.1) 10/06/17 07:30 Chloride 104 mmol/L (98-107) 10/06/17 07:30 Carbon Dioxide 32 mmol/L (21-32) 10/06/17 07:30 Anion Gap 7 (8-16) L 10/06/17 07:30 BUN 13 mg/dL (7-18) 10/06/17 07:30 Creatinine 1.0 mg/dL (0.7-1.3) 10/06/17 07:30 Creat Clearance w eGFR > 60 (>60) 10/06/17 07:30 Random Glucose 83 mg/dL (74-106) 10/06/17 07:30 Calcium 8.8 mg/dL (8.5-10.1) 10/06/17 07:30 Total Bilirubin 0.1 mg/dL (0.2-1.0) L D 10/06/17 07:30 AST 16 U/L (15-37) D 10/06/17 07:30 ALT 25 U/L (12-78) 10/06/17 07:30 Alkaline Phosphatase 84 U/L (45-117) D 10/06/17 07:30 Total Protein 6.3 g/dl (6.4-8.2) L 10/06/17 07:30 Albumin 3.5 g/dl (3.4-5.0) 10/06/17 07:30 RPR Titer Nonreactive (NONREACTIVE) 10/06/17 07:30 - Medication Discharge Medications: Ambulatory Orders NK [No Known Home Medication] 12/02/16 - Diagnosis (1) Alcohol dependence with uncomplicated withdrawal Current Visit: Yes Status: Acute (2) Nicotine dependence Current Visit: Yes Status: Acute Qualifiers: Nicotine product type: cigarettes Substance use status: in withdrawal Qualified Code(s): F17.213 - Nicotine dependence, cigarettes, with withdrawal (3) Opioid dependence with withdrawal Current Visit: Yes Status: Acute - AMA Did Patient Leave Against Medical Advice: Yes (Patient certified personal finance counselor on benefits and risk.)
--- NOTE | 2017-10-06 19:18 | CONSULT ---
[facility] Psychiatric Consult - Data Date of interview: 10/06/17 Admission source: [facility] Identifying data: Patient not found on unit.Informed by staff that Mr Motley had left the program earlier.See staff's notes for details.
[2017-10-07] MEDS ORDERED: METHADONE HCL 5 MG TABLET (FOR DETOX USE ONLY) PO SCH (10:00)
[2017-10-07] MEDS ORDERED: diazePAM 5 MG TABLET PO SCH (10:00)
[2017-10-09] MEDS ORDERED: METHADONE HCL 10 MG TABLET (FOR DETOX USE ONLY) PO SCH (10:00)
[2017-10-09] MEDS ORDERED: diazePAM 5 MG TABLET PO SCH (10:00)
[2017-10-10] MEDS ORDERED: METHADONE HCL 5 MG TABLET (FOR DETOX USE ONLY) PO SCH (06:00)
== END 2017-10-06 18:37 | disposition left against medical advice (07) | DRG 894 ==
LOC: YASAS 14:56 → Y3N 18:07
PROVIDERS: ADMIT Internal Medicine; ATTEND Internal Medicine
PROC: HZ2ZZZZ Detoxification Services for Substance Abuse Treatment (ICD-10-PCS; principal; 2017-10-05)
DX: F11.23 Opioid dependence with withdrawal (principal); F10.230 Alcohol dependence with withdrawal, uncomplicated; F17.213 Nicotine dependence, cigarettes, with withdrawal
CPT/HCPCS: 36415; 80053; 81003; 85027; 86593; 93005; 93010

== ENCOUNTER 2018-05-10 18:41 | Inpatient (IN) | payer OTHER ==
[2018-05-10 22:50] VITALS: BMI 23.1
--- NOTE | 2018-05-10 23:54 | HP ---
COWS - Scale Resting Pulse: 0= [place] 80 or Below Sweatin= No chills or Flushing Restless Observation: 1= Difficult to Sit Still Pupil Size: 0= Normal to Room Light Bone or Joint Aches: 4=Acute Joint/Muscle Pain Runny Nose/ Eye Tearin= Runny Nose/Eyes GI Upset > 30mins: 1= Stomach Cramp Tremor Observation: 0= None Yawning Observation: 0= None Anxiety or Irritability: 2=Irritable/Anxious Goose Flesh Skin: 0=Smooth Skin COWS Score: 10 CIWA Score - CIWA Score Nausea/Vomitin-No Nausea/No Vomiting Muscle Tremors: None Anxiety: 4-Mod. Anxious/Guarded Agitation: 4-Moderately Restless Paroxysmal Sweats: No Perspiration Orientation: 0-Oriented Tacttile Disturbances: 0-None Auditory Disturbances: 0-None Visual Disturbances: 0-None Headache: 0-None Present CIWA-Ar Total Score: 8 Admission ROS S - HPI Chief Complaint: SEEKING DETOX OF MMTP AND BENZO WITH C/O WORSENING WITHDRAWAL SX'S Allergies/Adverse Reactions: Allergies Allergy/AdvReac Type Severity Reaction Status Date / Time No Known Allergies Allergy Verified 11/06/17 18:31 History of Present Illness: 37 Y.O. MALE WITH OPIOID AND BENZO DEPENDENCE HERE FOR DETOX. CLIENT IS CURRENT ON MMTP AT [facility] BUT WAS REFERRED FOR DETOX OFF THE METHADONE HE WOULD LIKE TO TRY SUBOXONE. CLIENT PRESENTED REFERRAL LETTER STATING THE AFORMENTIONED. HI IS PRESENTLY ON METHADONE 40 MG DAILY. BUT REFUSED TO MEDICATE TODAY. HE IS KNOWN TO THIS PROGRAM. LAST ADMIT 11/06/2017. DENIES ANY SIGNIFICANT PERIOD OF CLEAN TIME. DEENIES HX/O OVERDOSE/ SEIZURES/ AVH/ PAST/PRESENT SI/HI. DENIES LEGALS PMHX-DENIES PSYCH- PANIC ATTACKS/ ANXIETY - Ebola screening Have you traveled outside of the country in the last 21 days: No (N) Have you had contact with anyone from an Ebola affected area: No Have you been sick,other than usual withdrawal symptoms: No Do you have a fever: No - Review of Systems Constitutional: Malaise, Changes in sleep EENT: reports: No Symptoms Reported Respiratory: reports: No Symptoms reported Cardiac: reports: No Symptoms Reported GI: reports: Poor Fluid Intake, Abdominal cramping : reports: No Symptoms Reported Musculoskeletal: reports: Back Pain Integumentary: reports: No Symptoms Reported Neuro: reports: No Symptoms reported Endocrine: reports: No Symptoms Reported Hematology: reports: No Symptoms Reported Psychiatric: reports: Anxious, Depressed Other Systems: Reviewed and Negative Patient History - Patient Medical History Hx Anemia: No Hx Asthma: No Hx Chronic Obstructive Pulmonary Disease (COPD): No Hx Cancer: No Hx Cardiac Disorders: No Hx Congestive Heart Failure: No Hx Hypertension: No Hx Hypercholesterolemia: No Hx Pacemaker: No HX Cerebrovascular Accident: No Hx Seizures: No Hx Dementia: No Hx Diabetes: No Hx Gastrointestinal Disorders: No Hx Liver Disease: No Hx Genitourinary Disorders: No Hx Sexually Transmitted Disorders: No Hx Renal Disease (ESRD): No Hx Thyroid Disease: No Hx Human Immunodeficiency Virus (HIV): No Hx Hepatitis C: No Hx Depression: Yes (Anxiety and panic attacks ) Hx Suicide Attempt: No Hx Bipolar Disorder: No Hx Schizophrenia: No Other Medical History: DENIES - Patient Surgical History Past Surgical History: Yes Hx Neurologic Surgery: No Hx Cataract Extraction: No Hx Cardiac Surgery: No Hx Lung Surgery: No Hx Breast Surgery: No Hx Breast Biopsy: No Hx Abdominal Surgery: No Hx Appendectomy: No Hx Cholecystectomy: No Hx Genitourinary Surgery: No Hx Section: No Hx Orthopedic Surgery: Yes (L knee surgery (2017)) Anesthesia Reaction: No - PPD History Previous Implant?: Yes Documented Results: Negative w/proof Implanted On Prior [facility] Admission?: Yes Date: 12/04/16 Results: 0 PPD to be Administered?: Yes - Smoking Cessation Smoking history: Current every day smoker Have you smoked in the past 12 months: Yes Aproximately how many cigarettes per day: 20 Cigars Per Day: 0 Hx Chewing Tobacco Use: No Initiated information on smoking cessation: Yes 'Breaking Loose' booklet given: 05/10/18 - Substance & Tx. History Hx Alcohol Use: Yes Hx Substance Use: Yes Substance Use Type: Alcohol, Heroin, Marijuana, Prescribed (MMTP 40 MG), Tranquilizers (XANX) Hx Substance Use Treatment: Yes ([facility]) - Substances Abused Heroin Route: Injection Frequency: Daily Amount used: 5 BAGS Age of first use: 35 Date of Last Use: 05/10/18 LIQUOR/BEER Route: Oral Frequency: Daily Amount used: 1/2 GALLON/6 BEERS Age of first use: 18 Date of Last Use: 05/07/18 Xanax Route: Oral Frequency: 3-6 times per week Amount used: 4mg Age of first use: 35 Date of Last Use: 05/08/18 thc Route: Smoking Frequency: 1-3 times last 30 days Amount used: 1 joint Age of first use: 16 Date of Last Use: 05/08/18 rx-mtd Route: Oral Frequency: Daily Amount used: 40mg Age of first use: 37 Date of Last Use: 05/08/18 Family Disease History - Family Disease History Family Disease History: Diabetes: Father (Alcohol Dependence), Mother, Heart Disease: Father, Other: Father Admission Physical Exam S - Vital Signs Vital Signs: Vital Signs - 24 hr 05/10/18 05/10/18 22:46 22:49 Temperature 97.3 F L 97.3 F L Pulse Rate 72 72 Respiratory 18 18 Rate Blood Pressure 128/73 - Physical General Appearance: Yes: Appropriately Dressed, Mild Distress, Irritable HEENTM: Yes: EOMI, Normocephalic, Normal Voice, LILA, Pharynx Normal Respiratory: Yes: Chest Non-Tender, Lungs Clear, Normal Breath Sounds, No Respiratory Distress, No Accessory Muscle Use Neck: Yes: No masses,lesions,Nodules, Supple, Trachea in good position Breast: Yes: Breast Exam Deferred Cardiology: Yes: Regular Rhythm, Regular Rate, S1, S2 Abdominal: Yes: Normal Bowel Sounds, Non Tender, Flat, Soft Genitourinary: Yes: Other (no c/o) Back: Yes: Normal Inspection Musculoskeletal: Yes: full range of Motion, Gait Steady Extremities: Yes: Normal Range of Motion, Non-Tender Neurological: Yes: Fully Oriented, Alert, Motor Strength 5/5, Depressed Affect Integumentary: Yes: Dry, Warm Lymphatic: Yes: Within Normal Limits - Diagnostic (1) Cannabis abuse, uncomplicated Current Visit: Yes Status: Acute (2) Alcohol dependence with uncomplicated withdrawal Current Visit: Yes Status: Acute (3) Nicotine dependence Current Visit: Yes Status: Chronic Qualifiers: Nicotine product type: cigarettes Substance use status: in withdrawal Qualified Code(s): F17.213 - Nicotine dependence, cigarettes, with withdrawal (4) Opioid dependence with withdrawal Current Visit: Yes Status: Acute (5) Sedative, hypnotic or anxiolytic dependence with withdrawal, unspecified Current Visit: Yes Status: Acute (6) Substance induced mood disorder Current Visit: Yes Status: Suspected (7) Anxiety Current Visit: Yes Status: Suspected Cleared for Admission [facility] - Detox or Rehab [facility] Level of Care: Medically Managed Detox Regimen/Protocol: Methadone/Valium Claeared for Rehab Admission: No [facility] Breath Alcohol Content Breath Alcohol Content: 0 Urine Drug Screen - Results Drug Screen Negative: No Urine Drug Screen Results: THC-Marijuana, OPI-Opiates, BZO-Benzodiazepines, MTD- Methadone, OXY-Oxycodone
--- NOTE | 2018-05-11 00:05 | HP ---
COWS - Scale Resting Pulse: 0= [place] 80 or Below Sweatin= No chills or Flushing Restless Observation: 1= Difficult to Sit Still Pupil Size: 0= Normal to Room Light Bone or Joint Aches: 4=Acute Joint/Muscle Pain Runny Nose/ Eye Tearin= Runny Nose/Eyes GI Upset > 30mins: 1= Stomach Cramp Tremor Observation: 0= None Yawning Observation: 0= None Anxiety or Irritability: 2=Irritable/Anxious Goose Flesh Skin: 0=Smooth Skin COWS Score: 10 CIWA Score - CIWA Score Nausea/Vomitin-No Nausea/No Vomiting Muscle Tremors: None Anxiety: 4-Mod. Anxious/Guarded Agitation: 4-Moderately Restless Paroxysmal Sweats: No Perspiration Orientation: 0-Oriented Tacttile Disturbances: 0-None Auditory Disturbances: 0-None Visual Disturbances: 0-None Headache: 0-None Present CIWA-Ar Total Score: 8 Admission ROS S - HPI Allergies/Adverse Reactions: Allergies Allergy/AdvReac Type Severity Reaction Status Date / Time No Known Allergies Allergy Verified 11/06/17 18:31 - Ebola screening Have you traveled outside of the country in the last 21 days: No (N) Have you had contact with anyone from an Ebola affected area: No Have you been sick,other than usual withdrawal symptoms: No Do you have a fever: No Patient History - Patient Medical History Hx Anemia: No Hx Asthma: No Hx Chronic Obstructive Pulmonary Disease (COPD): No Hx Cancer: No Hx Cardiac Disorders: No Hx Congestive Heart Failure: No Hx Hypertension: No Hx Hypercholesterolemia: No Hx Pacemaker: No HX Cerebrovascular Accident: No Hx Seizures: No Hx Dementia: No Hx Diabetes: No Hx Gastrointestinal Disorders: No Hx Liver Disease: No Hx Genitourinary Disorders: No Hx Sexually Transmitted Disorders: No Hx Renal Disease (ESRD): No Hx Thyroid Disease: No Hx Human Immunodeficiency Virus (HIV): No Hx Hepatitis C: No Hx Depression: Yes (Anxiety and panic attacks ) Hx Suicide Attempt: No Hx Bipolar Disorder: No Hx Schizophrenia: No Other Medical History: DENIES - Patient Surgical History Past Surgical History: Yes Hx Neurologic Surgery: No Hx Cataract Extraction: No Hx Cardiac Surgery: No Hx Lung Surgery: No Hx Breast Surgery: No Hx Breast Biopsy: No Hx Abdominal Surgery: No Hx Appendectomy: No Hx Cholecystectomy: No Hx Genitourinary Surgery: No Hx Section: No Hx Orthopedic Surgery: Yes (L knee surgery (2017)) Anesthesia Reaction: No - PPD History Previous Implant?: Yes Documented Results: Negative w/proof Implanted On Prior [facility] Admission?: Yes Date: 12/04/16 Results: 0 - Smoking Cessation Smoking history: Current every day smoker Have you smoked in the past 12 months: Yes Aproximately how many cigarettes per day: 20 Cigars Per Day: 0 Hx Chewing Tobacco Use: No Initiated information on smoking cessation: Yes - Substances Abused Heroin Route: Injection Frequency: Daily Amount used: 5 BAGS Age of first use: 35 Date of Last Use: 05/10/18 LIQUOR/BEER Route: Oral Frequency: Daily Amount used: 1/2 GALLON/6 BEERS Age of first use: 18 Date of Last Use: 05/07/18 Xanax Route: Oral Frequency: 3-6 times per week Amount used: 4mg Age of first use: 35 Date of Last Use: 05/08/18 thc Route: Smoking Frequency: 1-3 times last 30 days Amount used: 1 joint Age of first use: 16 Date of Last Use: 05/08/18 rx-mtd Route: Oral Frequency: Daily Amount used: 40mg Age of first use: 37 Date of Last Use: 05/08/18 Family Disease History - Family Disease History Family Disease History: Diabetes: Father (Alcohol Dependence), Mother, Heart Disease: Father, Other: Father Admission Physical Exam [facility] - Vital Signs Vital Signs: Vital Signs - 24 hr 05/10/18 05/10/18 22:46 22:49 Temperature 97.3 F L 97.3 F L Pulse Rate 72 72 Respiratory 18 18 Rate Blood Pressure 128/73 - Diagnostic (1) Cannabis abuse, uncomplicated Current Visit: Yes Status: Acute (2) Alcohol dependence with uncomplicated withdrawal Current Visit: Yes Status: Acute (3) Nicotine dependence Current Visit: Yes Status: Chronic Qualifiers: Nicotine product type: cigarettes Substance use status: in withdrawal Qualified Code(s): F17.213 - Nicotine dependence, cigarettes, with withdrawal (4) Opioid dependence with withdrawal Current Visit: Yes Status: Acute (5) Sedative, hypnotic or anxiolytic dependence with withdrawal, unspecified Current Visit: Yes Status: Acute (6) Substance induced mood disorder Current Visit: Yes Status: Suspected (7) Anxiety Current Visit: Yes Status: Suspected Cleared for Admission [facility] - Detox or Rehab [facility] Level of Care: Medically Managed Detox Regimen/Protocol: Methadone/Valium Claeared for Rehab Admission: No [facility] Breath Alcohol Content Breath Alcohol Content: 0 Urine Drug Screen - Results Drug Screen Negative: No Urine Drug Screen Results: THC-Marijuana, OPI-Opiates, BZO-Benzodiazepines, MTD- Methadone, OXY-Oxycodone
[2018-05-11] MEDS ORDERED: IBUPROFEN 400 MG TABLET (FP) PO PRN (00:06)
[2018-05-11] MEDS ORDERED: METHADONE HCL 10 MG TABLET (FOR DETOX USE ONLY) PO ONE ×3 (00:06→23:00)
[2018-05-11] MEDS ORDERED: P-EPHED 60MG/TRIPROLIDI 2.5MG TABLET PO PRN (00:06)
[2018-05-11] MEDS ORDERED: ACETAMINOPHEN 325 MG TABLET (FP) PO PRN (00:06)
[2018-05-11] MEDS ORDERED: MAGNESIUM CITRATE 300 ML BOTTLE PO PRN (00:06)
[2018-05-11] MEDS ORDERED: NICOTINE POLACRILEX 2 MG GUM BC PRN (00:06)
[2018-05-11] MEDS ORDERED: MAGNESIUM HYDROX 2400MG/30ML ORAL SUSPENSION 30 ML CUP PO PRN (00:06)
[2018-05-11] MEDS ORDERED: LOPERAMIDE HCL 2 MG CAPSULE PO PRN (00:06)
[2018-05-11] MEDS ORDERED: diazePAM 5 MG TABLET PO ONE (00:06)
[2018-05-11] MEDS ORDERED: diazePAM 5 MG TABLET PO PRN (00:06)
[2018-05-11] MEDS ORDERED: MAG HYDROX/AL HYDROX/SIMETH 30 ML UNIT-DOSE CUP PO PRN (00:06)
[2018-05-11] MEDS ORDERED: guaiFENesin/D-METHORPHAN HB 10 ML UNIT-DOSE CUPS PO PRN (00:06)
[2018-05-11] MEDS ORDERED: MENTHOL/PHENOL 1 EACH UD MM PRN (00:06)
[2018-05-11] MEDS: diazePAM 5 MG TABLET PO SCH ×2 (05:49→13:23)
[2018-05-11] MEDS ORDERED: NICOTINE 21 MG/24 HOURS TOPICAL PATCH TD SCH (10:00)
[2018-05-11] MEDS ORDERED: PRENATAL VITAMINS W/ FOLIC ACID TABLET (FP) PO SCH (10:00)
[2018-05-11 10:24] LABS: HEMATOCRIT 40.1 % (35.4-49); HEMOGLOBIN 13.5 GM/dL (11.7-16.9); MCH 28.7 pg (25.7-33.7); MCHC 33.7 g/dl (32.0-35.9); MEAN CELL VOLUME 85.2 fl (80-96); MEAN PLT VOLUME 8.5 fl (7.5-11.1); PLATELET COUNT 265 K/MM3 (134-434); RBC 4.71 M/mm3 (4.00-5.60); RDW 14.5 % (11.9-15.9); WHITE BLOOD COUNT 5.6 K/mm3 (4.0-10.0)
[2018-05-11 10:32] LABS: CHLORIDE 103 mmol/L (98-107); POTASSIUM 4.4 mmol/L (3.5-5.1); SODIUM 142 mmol/L (136-145)
[2018-05-11 11:00] LABS: ALBUMIN 3.6 g/dl (3.4-5.0); ALK PHOS 91 U/L (45-117); ANION GAP 11 MMOL/L (8-16); BILIRUBIN,TOTAL 0.2 mg/dL (0.2-1); BLOOD UREA NITROGEN 11 mg/dL (7-18); CO2 28 mmol/L (21-32); CREATININE 0.7 mg/dL (0.55-1.3); GLUCOSE,RANDOM 99 mg/dL (74-106); SGOT/AST 24 U/L (15-37); SGPT/ALT 41 U/L (13-61); TOT PROT 6.4 g/dl (6.4-8.2)
--- NOTE | 2018-05-11 14:35 | PN ---
[facility] CIWA - CIWA Score Nausea/Vomitin-Mild Nausea/No Vomiting Muscle Tremors: 1-None Visible, but Loda Anxiety: 0-No Anxiety, at Ease Agitation: 0-Normal Activity Paroxysmal Sweats: 1-Minimal Palms Moist Orientation: 0-Oriented Tacttile Disturbances: 0-None Auditory Disturbances: 0-None Visual Disturbances: 0-None Headache: 0-None Present CIWA-Ar Total Score: 3 S COWS - Scale Resting Pulse: 0= [place] 80 or Below Sweatin=Flushed/Facial Moisture Restless Observation: 0= Sits Still Pupil Size: 0= Normal to Room Light Bone or Joint Aches: 0= None Runny Nose/ Eye Tearin= None GI Upset > 30mins: 2= Nausea/Diarrhea (No diarrhea) Tremor Observation of Outstretched Hands: 1= Tremor Loda, Not Seen Yawning Observation: 0= None Anxiety or Irritability: 0= None Goose Flesh Skin: 0=Smooth Skin COWS Score: 5 S Progress Note (SOAP) Subjective: States feeling much better on medication. States mild nausea, but no vomiting or diarrhea. Having a little sweats. Objective: A&O x 3. Tremors felt in hands. Facial perspiration noted. Abd S/NT. Vital Signs 05/11/18 05/11/18 09:09 13:41 Temperature 98.2 F 98.0 F Pulse Rate 75 82 Respiratory 16 16 Rate Blood Pressure 113/64 105/58 Laboratory Last Values WBC 5.6 K/mm3 (4.0-10.0) 05/11/18 07:50 RBC 4.71 M/mm3 (4.00-5.60) 05/11/18 07:50 Hgb 13.5 GM/dL (11.7-16.9) 05/11/18 07:50 Hct 40.1 % (35.4-49) 05/11/18 07:50 MCV 85.2 fl (80-96) 05/11/18 07:50 MCH 28.7 pg (25.7-33.7) 05/11/18 07:50 MCHC 33.7 g/dl (32.0-35.9) 05/11/18 07:50 RDW 14.5 % (11.9-15.9) 05/11/18 07:50 Plt Count 265 K/MM3 (134-434) 05/11/18 07:50 MPV 8.5 fl (7.5-11.1) 05/11/18 07:50 Sodium 142 mmol/L (136-145) 05/11/18 07:50 Potassium 4.4 mmol/L (3.5-5.1) 05/11/18 07:50 Chloride 103 mmol/L (98-107) 05/11/18 07:50 Carbon Dioxide 28 mmol/L (21-32) 05/11/18 07:50 Anion Gap 11 MMOL/L (8-16) 05/11/18 07:50 BUN 11 mg/dL (7-18) 05/11/18 07:50 Creatinine 0.7 mg/dL (0.55-1.3) 05/11/18 07:50 Creat Clearance w eGFR > 60 (>60) 05/11/18 07:50 Random Glucose 99 mg/dL (74-106) 05/11/18 07:50 Calcium 9.0 mg/dL (8.5-10.1) 05/11/18 07:50 Total Bilirubin 0.2 mg/dL (0.2-1) 05/11/18 07:50 AST 24 U/L (15-37) 05/11/18 07:50 ALT 41 U/L (13-61) 05/11/18 07:50 Alkaline Phosphatase 91 U/L (45-117) 05/11/18 07:50 Total Protein 6.4 g/dl (6.4-8.2) 05/11/18 07:50 Albumin 3.6 g/dl (3.4-5.0) 05/11/18 07:50 RPR Titer Nonreactive (NONREACTIVE) 05/11/18 07:50 Labs reviewed. Assessment: Withdrawal symptoms. Plan: Continue detox.
--- NOTE | 2018-05-11 16:45 | EKG ---
Test Reason : Blood Pressure : / mmHG Vent. Rate : 067 BPM Atrial Rate : 067 BPM P-R Int : 194 ms QRS Dur : 084 ms QT Int : 380 ms P-R-T Axes : 038 043 032 degrees QTc Int : 401 ms NORMAL SINUS RHYTHM NORMAL ECG WHEN COMPARED WITH ECG OF 06-NOV-2017 19:08, NO SIGNIFICANT CHANGE WAS FOUND Confirmed by Jackson Blanco ([id number]) on 05/11/2018 4:44:53 PM Referred By: Confirmed By:Jackson Blanco
--- NOTE | 2018-05-11 16:53 | CONSULT ---
[facility] Psychiatric Consult - Data Date of interview: 05/11/18 Admission source: [facility] Identifying data: Patient is a 37 year old single male, father of one, unemployed, homeless, and is supported by disability benefits. This is one of multiple admissions for patient. Pt. admitted to for alcohol, opiate, and benzodiazepine dependence. Substance Abuse History: Smoking Cessation. Smoking history: Current every day smoker. Have you smoked in the past 12 months: Yes. Aproximately how many cigarettes per day: 20. Cigars Per Day: 0. Hx Chewing Tobacco Use: No. Initiated information on smoking cessation: Yes. 'Breaking Loose' booklet given : 05/10/18. - Substance & Tx. History. Hx Alcohol Use: Yes. Hx Substance Use : Yes. Substance Use Type: Alcohol, Heroin, Marijuana, Prescribed (MMTP 40 MG) , Tranquilizers (XANX). Hx Substance Use Treatment: Yes ([facility]). - Substances Abused. Heroin. Route: Injection. Frequency: Daily. Amount used: 5 BAGS. Age of first use: 35. Date of Last Use: 05/10/18. LIQUOR/BEER. Route: Oral. Frequency: Daily. Amount used: 1/2 GALLON/6 BEERS. Age of first use: 18. Date of Last Use: 05/07/18. Xanax. Route: Oral. Frequency: 3-6 times per week. Amount used: 4mg. Age of first use: 35. Date of Last Use: . thc. Route: Smoking. Frequency: 1-3 times last 30 days. Amount used: 1 joint. Age of first use: 16. Date of Last Use: 05/08/18. rx-mtd. Route : Oral. Frequency: Daily. Amount used: 40mg. Age of first use: 37. Date of Last Use: 05/08/18 Medical History: Left knee surgery in 2017 Psychiatric History: Patient denies h/o psychiatric hospitalization. Mr. Motley reports h/o outpatient care, most recently 2-3 years ago at [facility]. He is unable to recall the medications he was prescribed but as per Dr. Herrera note on 11/07/17 he used to be maintained on a regimen of wellbutrin,sertaline and vistaril. Pt. reports h/o nonadherence to OPD. Pt. currently reports poor sleep. Physical/Sexual Abuse/Trauma History: denies. Mental Status Exam - Mental Status Exam Alert and Oriented to: Time, Place, Person Cognitive Function: Good Patient Appearance: Well Groomed Mood: Euthymic Affect: Mood Congruent Patient Behavior: Guarded, Cooperative Speech Pattern: Appropriate Voice Loudness: Normal Thought Process: Intact, Goal Oriented Thought Disorder: Not Present Hallucinations: Denies Suicidal Ideation: Denies Homicidal Ideation: Denies Insight/Judgement: Poor Sleep: Poorly Appetite: Fair Gait/Station: Normal Psychiatric Findings - Problem List ([place] 1, 2,3) (1) Substance-induced sleep disorder Current Visit: Yes Status: Acute (2) Alcohol dependence with uncomplicated withdrawal Current Visit: Yes Status: Acute (3) Opioid dependence with withdrawal Current Visit: Yes Status: Acute (4) Sedative, hypnotic or anxiolytic dependence with withdrawal, unspecified Current Visit: Yes Status: Acute (5) Nicotine dependence Current Visit: Yes Status: Chronic Qualifiers: Nicotine product type: cigarettes Substance use status: in withdrawal Qualified Code(s): F17.213 - Nicotine dependence, cigarettes, with withdrawal (6) Cannabis dependence Current Visit: Yes Status: Chronic (7) Substance induced mood disorder Current Visit: Yes Status: Acute - Initial Treatment Plan Initial Treatment Plan: Psychoeducation provided. Detoxification in progress. Will order Ambien 10mg qhs prn. Benefits and side effects discussed. Pt. made aware of the risk of parasomnia. Verbal consent given.
[2018-05-11 18:15] VITALS: BP 118/79; PULSE 81; TEMP 98.3
--- NOTE | 2018-05-11 19:41 | DS ---
[facility] Detox Discharge Summary Admission Date: 05/11/18 Discharge Date: 05/11/18 - History Additional Comments: Admitted for alcohol, anxiolytic, and opiate withdrawal. - Physical Exam Results Vital Signs: Vital Signs Temperature 98.3 F 05/11/18 18:14 Pulse Rate 81 05/11/18 18:14 Respiratory Rate 18 05/11/18 18:14 Blood Pressure 118/79 05/11/18 18:14 O2 Sat by Pulse Oximetry (%) Pertinent Admission Physical Exam Findings: Admitted with withdrawal symptoms. Laboratory Tests 05/11/18 05/11/18 05/11/18 07:50 07:50 07:50 WBC 5.6 RBC 4.71 Hgb 13.5 Hct 40.1 MCV 85.2 MCH 28.7 MCHC 33.7 RDW 14.5 Plt Count 265 MPV 8.5 Sodium 142 Potassium 4.4 Chloride 103 Carbon Dioxide 28 Anion Gap 11 BUN 11 Creatinine 0.7 Creat Clearance w eGFR > 60 Random Glucose 99 Calcium 9.0 Total Bilirubin 0.2 AST 24 ALT 41 Alkaline Phosphatase 91 Total Protein 6.4 Albumin 3.6 RPR Titer Nonreactive Labs reviewed. - Treatment Hospital Course: Detox Protocol Followed (Patient did not complete detox protocol. States I'm not ready for this. Refuses to stay despite discussion regarding adjusting meds. Aware of potential for overdose.) - Medication Discharge Medications: Ambulatory Orders NK [No Known Home Medication] 12/02/16 - Diagnosis (1) Alcohol dependence with uncomplicated withdrawal Current Visit: Yes Status: Acute (2) Opioid dependence with withdrawal Current Visit: Yes Status: Acute (3) Sedative, hypnotic or anxiolytic dependence with withdrawal, unspecified Current Visit: Yes Status: Acute - AMA Did Patient Leave Against Medical Advice: Yes (Alert, oriented, gait steady. )
--- NOTE | 2018-05-11 19:50 | PN ---
[facility] Progress Note Note: Patient did not complete detox protocol. States I'm not ready for this. Refuses to stay despite discussion regarding adjusting meds. Aware of risks for potential for overdose. Encouraged to return to [facility], the ER, or another program and try again. Left AMA.
[2018-05-11 19:55] LABS: URINE APPEARANCE CLEAR; URINE BILIRUBIN NEGATIVE (<2.0 mg/dL); URINE COLOR LTYELLOW; URINE GLUCOSE (UA) NEGATIVE (NEGATIVE); URINE KETONE NEGATIVE (NEGATIVE); URINE LEUK ESTERASE NEGATIVE (NEGATIVE); URINE NITRITE NEGATIVE (NEGATIVE); URINE PROTEIN NEGATIVE (NEGATIVE); URINE UROBILINOGEN NEGATIVE mg/dL (0.2-1.0)
[2018-05-11] MEDS ORDERED: ZOLPIDEM TARTRATE 10 MG TABLET (PARK CARE ONLY) PO PRN (22:00)
[2018-05-11] MEDS ORDERED: THIAMINE HCL 100 MG TABLET (FP) PO SCH (22:00)
[2018-05-11] MEDS ORDERED: MELATONIN 5 MG TABLETS PO PRN (22:00)
[2018-05-12] MEDS ORDERED: METHADONE HCL 10 MG TABLET (FOR DETOX USE ONLY) PO SCH (10:00)
[2018-05-13] MEDS ORDERED: METHADONE HCL 5 MG TABLET (FOR DETOX USE ONLY) PO SCH (10:00)
[2018-05-13] MEDS ORDERED: diazePAM 5 MG TABLET PO SCH (10:00)
[2018-05-15] MEDS ORDERED: diazePAM 5 MG TABLET PO SCH (10:00)
[2018-05-15] MEDS ORDERED: METHADONE HCL 10 MG TABLET (FOR DETOX USE ONLY) PO SCH (10:00)
[2018-05-16] MEDS ORDERED: METHADONE HCL 5 MG TABLET (FOR DETOX USE ONLY) PO SCH (06:00)
== END 2018-05-11 20:13 | disposition left against medical advice (07) | DRG 894 ==
LOC: YASAS 18:41 → Y3N 05-11 00:28
PROC: HZ2ZZZZ Detoxification Services for Substance Abuse Treatment (ICD-10-PCS; principal; 2018-05-11)
DX: F10.230 Alcohol dependence with withdrawal, uncomplicated (principal); F11.20 Opioid dependence, uncomplicated; F13.20 Sedative, hypnotic or anxiolytic dependence, uncomplicated; F19.282 Other psychoactive substance dependence with psychoactive substance-induced sleep disorder; F12.20 Cannabis dependence, uncomplicated; F17.213 Nicotine dependence, cigarettes, with withdrawal; F19.24 Other psychoactive substance dependence with psychoactive substance-induced mood disorder; F41.9 Anxiety disorder, unspecified; F41.0 Panic disorder [episodic paroxysmal anxiety]
CPT/HCPCS: 36415; 80053; 81003; 85027; 86593; 93005; 93010

== ENCOUNTER 2018-12-31 12:03 | Inpatient (IN) | payer OTHER ==
[2018-12-31 12:26] VITALS: BMI 27.7
--- NOTE | 2018-12-31 14:00 | HP ---
COWS - Scale Resting Pulse: 0= [place] 80 or Below Sweatin= Chills/Flushing Restless Observation: 1= Difficult to Sit Still Pupil Size: 1= Pupils >than Normal Bone or Joint Aches: 2= Severe Diffuse Aches Runny Nose/ Eye Tearin= Runny Nose/Eyes GI Upset > 30mins: 2= Nausea/Diarrhea Tremor Observation: 2= Slight Tremor Visible Yawning Observation: 1= 1-2x During Session Anxiety or Irritability: 2=Irritable/Anxious Goose Flesh Skin: 0=Smooth Skin COWS Score: 14 CIWA Score Nausea/Vomitin Muscle Tremors: 2 Anxiety: 2 Agitation: 2 Paroxysmal Sweats: 1-Minimal Palms Moist Orientation: 0-Oriented Tacttile Disturbances: 1-Very Mild Itch/Numbness Auditory Disturbances: 1-Very Mild Visual Disturbances: 0-None Headache: 2-Mild CIWA-Ar Total Score: 13 - Admission Criteria OASAS Guidelines: Admission for Medically Managed Detox: Requires at least one of the followin. CIWA greater than 12 2. Seizures within the past 24 hours 3. Delirium tremens within the past 24 hours 4. Hallucinations within the past 24 hours 5. Acute intervention needed for co occurring medical disorder 6. Acute intervention needed for co occurring psychiatric disorder 7. Severe withdrawal that cannot be handled at a lower level of care (continued vomiting, continued diarrhea, abnormal vital signs) requiring intravenous medication and/or fluids 8. Admission ROS [facility] Chief Complaint: i need help to stop using heroin,xanax,marijuana,alcohol Allergies/Adverse Reactions: Allergies Allergy/AdvReac Type Severity Reaction Status Date / Time No Known Allergies Allergy Verified 12/31/18 12:19 History of Present Illness: this 38 years old male with heroin,xanax and marijuana dependence seeking detox, withdrawal symptom, multiple admissions in detox,last inga 10/12 not completed nicotine dependence,would like to have a patch and gum anxiety and panic attack no med,did not want to see psychiatrist plan for out patient program after detox also drinking alcohol no significant period of sobriety Exam Limitations: No Limitations - Ebola screening Have you traveled outside of the country in the last 21 days: No Have you had contact with anyone from an Ebola affected area: No Do you have a fever: No - Review of Systems Constitutional: Chills, Loss of Appetite, Malaise, Night Sweats, Changes in sleep, Weakness EENT: reports: Tearing, Nose Congestion Respiratory: reports: No Symptoms reported Cardiac: reports: No Symptoms Reported GI: reports: Diarrhea, Nausea, Abdominal cramping : reports: No Symptoms Reported Musculoskeletal: reports: Back Pain, Joint Pain, Muscle Pain, Joint Stiffness Integumentary: reports: Dryness Neuro: reports: Headache, Tremors Endocrine: reports: No Symptoms Reported Hematology: reports: No Symptoms Reported Psychiatric: reports: No Sypmtoms Reported, Judgement Intact, Orientated x3, Agitated, Anxious, other (PANACK ATTACK) Other Systems: Reviewed and Negative Patient History - Patient Medical History Hx Anemia: No Hx Asthma: No Hx Chronic Obstructive Pulmonary Disease (COPD): No Hx Cancer: No Hx Cardiac Disorders: No Hx Congestive Heart Failure: No Hx Hypertension: No Hx Hypercholesterolemia: No Hx Pacemaker: No HX Cerebrovascular Accident: No Hx Seizures: No Hx Dementia: No Hx Diabetes: No Hx Gastrointestinal Disorders: No Hx Liver Disease: No Hx Genitourinary Disorders: No Hx Sexually Transmitted Disorders: No Hx Renal Disease (ESRD): No Hx Thyroid Disease: No Hx Human Immunodeficiency Virus (HIV): No (LAST 10/12 NEGATIVE) Hx Hepatitis C: No Hx Depression: Yes (Anxiety and panic attacks ) Hx Suicide Attempt: No Hx Bipolar Disorder: No Hx Schizophrenia: No Other Medical History: no suicidal,no homicidal - Patient Surgical History Past Surgical History: Yes Hx Neurologic Surgery: No Hx Cataract Extraction: No Hx Cardiac Surgery: No Hx Lung Surgery: No Hx Breast Surgery: No Hx Breast Biopsy: No Hx Abdominal Surgery: No Hx Appendectomy: No Hx Cholecystectomy: No Hx Genitourinary Surgery: No Hx Section: No Hx Orthopedic Surgery: Yes (L knee surgery (2017) arthroscopic surgry left knee ) Anesthesia Reaction: No - PPD History Previous Implant?: Yes Documented Results: Negative w/proof Implanted On Prior R Admission?: Yes Date: 05/13/18 Results: 0 mm PPD to be Administered?: No - Smoking Cessation Smoking history: Current every day smoker Have you smoked in the past 12 months: Yes Aproximately how many cigarettes per day: 20 Cigars Per Day: 0 Hx Chewing Tobacco Use: No Initiated information on smoking cessation: Yes 'Breaking Loose' booklet given: 12/31/18 - Substance & Tx. History Hx Alcohol Use: No Hx Substance Use: Yes Substance Use Type: Alcohol, Heroin, Marijuana, Tranquilizers Hx Substance Use Treatment: Yes (inag 10/12 not completed) - Substances abused Alprazolam (Xanax) Substance route: Oral Frequency: Daily Amount used: 4MG Age of first use: 37 Date of last use: 12/31/18 Heroin Substance route: Injection Frequency: Daily Amount used: 8 BAGS Age of first use: 37 Date of last use: 12/30/18 Alcohol Substance route: Oral Frequency: Daily Amount used: [employer] Age of first use: 18 Date of last use: 12/28/18 Marijuana/Hashish Substance route: Smoking Frequency: Daily Amount used: $10 Age of first use: 18 Date of last use: 12/30/18 Family Disease History - Family Disease History Family Disease History: Diabetes: Father (Alcohol Dependence), Mother, Heart Disease: Father, Other: Father Admission Physical Exam S - Vital Signs Vital Signs: Vital Signs - 24 hr 12/31/18 12:18 Temperature 99.2 F Pulse Rate 79 Respiratory 18 Rate Blood Pressure 100/71 - Physical General Appearance: Yes: Moderate Distress, Tremorous, Irritable, Sweating, Anxious HEENTM: Yes: Normal ENT Inspection, LILA, Pharynx Normal Respiratory: Yes: Lungs Clear, Normal Breath Sounds, No Respiratory Distress Neck: Yes: Within Normal Limits, Supple, Trachea in good position Breast: Yes: Within Normal Limits Cardiology: Yes: Within Normal Limits, Regular Rhythm, Regular Rate, S1, S2 Abdominal: Yes: Within Normal Limits, Normal Bowel Sounds, Non Tender, Flat, Soft Genitourinary: Yes: Within Normal Limits Back: Yes: Muscle Spasm Musculoskeletal: Yes: full range of Motion, Back pain, Muscle Pain Extremities: Yes: Tremors Neurological: Yes: Within Normal Limits, felt tipping machine tender II-XII NML intact, Fully Oriented, Alert, Motor Strength 5/5 Integumentary: Yes: Dry, Track Baumann Lymphatic: Yes: Within Normal Limits - Diagnostic (1) Opioid dependence with withdrawal Current Visit: No Status: Acute (2) Alcohol dependence with uncomplicated withdrawal Current Visit: No Status: Acute (3) Cannabis abuse, uncomplicated Current Visit: No Status: Acute (4) IV drug user Current Visit: No Status: Acute (5) Nicotine dependence Current Visit: No Status: Chronic Qualifiers: Nicotine product type: cigarettes Substance use status: in withdrawal Qualified Code(s): F17.213 - Nicotine dependence, cigarettes, with withdrawal (6) Generalized anxiety disorder with panic attacks Current Visit: Yes Status: Acute (7) Sedative abuse Current Visit: Yes Status: Acute Cleared for Admission S - Detox or Rehab [facility] Level of Care: Medically Managed Detox Regimen/Protocol: Methadone/Valium Breathalyzer - Breathalyzer Breathalyzer: 0 Urine Drug Screen - Test Device Lot number: [id number] Expiration date: 09/23/20 - Control Is test valid?: Yes - Results Drug screen NEGATIVE: No Urine drug screen results: THC-Marijuana, FEN-Fentanyl, MOP-Opiates, OXY- Oxycodone Inpatient Rehab Admission - Rehab Decision to Admit Inpatient rehab admission?: No
[2018-12-31] MEDS ORDERED: cloNIDine HCL 0.1 MG TABLET PO PRN (14:12)
[2018-12-31] MEDS ORDERED: IBUPROFEN 400 MG TABLET (FP) PO PRN (14:19)
[2018-12-31] MEDS ORDERED: BISMUTH SUBSALICYLATE 524 MG/30 ML UD PO PRN (14:19)
[2018-12-31] MEDS ORDERED: MAGNESIUM CITRATE 300 ML BOTTLE PO PRN (14:19)
[2018-12-31] MEDS ORDERED: MAGNESIUM HYDROX 2400MG/30ML ORAL SUSPENSION 30 ML CUP PO PRN (14:19)
[2018-12-31] MEDS ORDERED: MAG HYDROX/AL HYDROX/SIMETH 30 ML UNIT-DOSE CUP PO PRN (14:19)
[2018-12-31] MEDS ORDERED: ACETAMINOPHEN 325 MG TABLET (FP) PO PRN ×2 (14:19)
[2018-12-31] MEDS ORDERED: NICOTINE POLACRILEX 2 MG GUM BUC PRN (14:19)
[2018-12-31] MEDS ORDERED: MENTHOL/PHENOL 1 EACH UD MM PRN (14:19)
[2018-12-31] MEDS ORDERED: METHADONE HCL 10 MG TABLET (FOR DETOX USE ONLY) PO ONE ×2 (15:15→23:00)
[2018-12-31] MEDS: diazePAM 5 MG TABLET PO PRN (15:44)
[2018-12-31] MEDS: NICOTINE 21 MG/24 HOURS TOPICAL PATCH TD SCH (15:44)
[2018-12-31 17:07] LABS: HEMATOCRIT 43.4 % (35.4-49); HEMOGLOBIN 14.1 GM/dL (11.7-16.9); MCH 28.1 pg (25.7-33.7); MCHC 32.4 g/dl (32.0-35.9); MEAN CELL VOLUME 86.6 fl (80-96); PLATELET COUNT 250 K/MM3 (134-434); RBC 5.01 M/mm3 (4.00-5.60); RDW 14.5 % (11.9-15.9); WHITE BLOOD COUNT 6.5 K/mm3 (4.0-10.0)
[2018-12-31 17:15] LABS: ALBUMIN 3.9 g/dl (3.4-5.0); BILIRUBIN,TOTAL 0.4 mg/dL (0.2-1); CALCIUM 9.5 mg/dL (8.5-10.1); CREATININE 0.8 mg/dL (0.55-1.3); POTASSIUM 4.3 mmol/L (3.5-5.1); TOT PROT 6.9 g/dl (6.4-8.2)
[2018-12-31] MEDS: THIAMINE HCL 100 MG TABLET (FP) PO SCH (22:57)
[2018-12-31] MEDS: diazePAM 5 MG TABLET PO SCH (22:57)
[2018-12-31] MEDS: MELATONIN 5 MG TABLETS PO PRN (22:59)
[2019-01-01] MEDS: diazePAM 5 MG TABLET PO SCH ×3 (05:26→21:58)
[2019-01-01] MEDS ORDERED: METHADONE HCL 10 MG TABLET (FOR DETOX USE ONLY) PO ONE ×2 (10:00→11:30)
[2019-01-01] MEDS: PRENATAL VITAMINS W/ FOLIC ACID TABLET (FP) PO SCH (10:06)
[2019-01-01] MEDS: diazePAM 5 MG TABLET PO PRN (10:07)
[2019-01-01] MEDS: NICOTINE 21 MG/24 HOURS TOPICAL PATCH TD SCH (10:07)
[2019-01-01] MEDS ORDERED: FLU VACCINE QUAD 60 MCG/0.5 ML (MDV 18-19) IM ONE (12:00)
[2019-01-01] MEDS: hydrOXYzine PAMOATE 25 MG CAPSULE (FP) PO PRN ×2 (12:45→23:17)
[2019-01-01] MEDS: METHOCARBAMOL 500 MG TABLET PO PRN ×2 (12:45→21:58)
--- NOTE | 2019-01-01 17:57 | PN ---
[facility] CIWA - CIWA Score Nausea/Vomitin-No Nausea/No Vomiting Muscle Tremors: 3 Anxiety: 3 Agitation: 2 Paroxysmal Sweats: 3 Orientation: 0-Oriented Tacttile Disturbances: 1-Very Mild Itch/Numbness Auditory Disturbances: 0-None Visual Disturbances: 1-Very Mild Sensitivity Headache: 0-None Present CIWA-Ar Total Score: 13 BHS COWS - Scale Resting Pulse: 0= [place] 80 or Below Sweatin= Chills/Flushing Restless Observation: 1= Difficult to Sit Still Pupil Size: 0= Normal to Room Light Bone or Joint Aches: 0= None Runny Nose/ Eye Tearin= None GI Upset > 30mins: 0= None Tremor Observation of Outstretched Hands: 2= Slight Tremor Visible Yawning Observation: 1= 1-2x During Session Anxiety or Irritability: 2=Irritable/Anxious Goose Flesh Skin: 3=Piloerection COWS Score: 10 BHS Progress Note (SOAP) Subjective: Interrupted sleep, Sweating, Tremors, Anxious. Objective: PATIENT A & O X 3, OBSERVED AMBULATING ON UNIT UNASSISTED. IN NO ACUTE DISTRESS. 01/01/19 17:54 Vital Signs Temperature 97.5 F L 01/01/19 16:03 Pulse Rate 76 01/01/19 16:03 Respiratory Rate 18 01/01/19 16:03 Blood Pressure 116/77 01/01/19 16:03 O2 Sat by Pulse Oximetry (%) Laboratory Tests 12/31/18 12/31/18 12/31/18 14:15 14:15 14:15 WBC 6.5 RBC 5.01 Hgb 14.1 Hct 43.4 MCV 86.6 MCH 28.1 MCHC 32.4 RDW 14.5 Plt Count 250 MPV 9.0 Sodium 139 Potassium 4.3 Chloride 104 Carbon Dioxide 30 Anion Gap 5 L BUN 13 Creatinine 0.8 Est GFR (CKD-EPI)AfAm 133.20 Est GFR (CKD-EPI)NonAf 114.93 Random Glucose 117 H Calcium 9.5 Total Bilirubin 0.4 AST 15 ALT 26 Alkaline Phosphatase 77 Total Protein 6.9 Albumin 3.9 RPR Titer Nonreactive LABS NOTED. Assessment: 01/01/19 17:54 WITHDRAWAL SYMPTOMS. Plan: CONTINUE DETOX. PATIENT REPORTS THAT HE IS TOLERATING CURRENT WITHDRAWAL / DETOX SYMPTOMS RELATIVELY WELL THUS FAR. AT PATIENT'S REQUEST, CURRENT DETOX MEDICATION REGIMEN (METHADONE) MODIFIED SO THAT PATIENT MAY BE DISCHARGED ON 01/01/2019, SO THAT HE MAY BE ABLE TO RETURN TO WORK NECESSARY.
[2019-01-01] MEDS: THIAMINE HCL 100 MG TABLET (FP) PO SCH (21:58)
[2019-01-01] MEDS: MELATONIN 5 MG TABLETS PO PRN (21:59)
[2019-01-02] MEDS: diazePAM 5 MG TABLET PO PRN (06:34)
[2019-01-02] MEDS ORDERED: METHADONE HCL 10 MG TABLET (FOR DETOX USE ONLY) PO ONE ×2 (10:00)
[2019-01-02] MEDS ORDERED: diazePAM 5 MG TABLET PO SCH (10:00)
[2019-01-02 10:20] VITALS: BP 115/79; PULSE 76; TEMP 97.4
[2019-01-02] MEDS: PRENATAL VITAMINS W/ FOLIC ACID TABLET (FP) PO SCH (10:24)
[2019-01-02] MEDS: NICOTINE 21 MG/24 HOURS TOPICAL PATCH TD SCH (10:25)
--- NOTE | 2019-01-02 12:22 | DS ---
[facility] Detox Discharge Summary Admission Date: 12/31/18 Discharge Date: 01/02/19 - History Present History: Alcohol Dependence, Opioid Dependence, Sedative Dependence Additional Comments: 38 years old male admitted on 12/31/18 for alcohol benzo and opiate withdrawal stabilization feeling better today wants to go to [facility] tomorrow morning begin suboxone maintenance program patient dose not want methadone program patient is alert no acute distress denies suicidal ideation Pertinent Past History: bring in medication list and lab report to aftercare appointment - Physical Exam Results Vital Signs: Vital Signs Temperature 97.4 F L 01/02/19 10:19 Pulse Rate 76 01/02/19 10:19 Respiratory Rate 18 01/02/19 10:19 Blood Pressure 115/79 01/02/19 10:19 O2 Sat by Pulse Oximetry (%) Pertinent Admission Physical Exam Findings: alcohol benzo and opiate withdrawal sx Laboratory Last Values WBC 6.5 K/mm3 (4.0-10.0) 12/31/18 14:15 RBC 5.01 M/mm3 (4.00-5.60) 12/31/18 14:15 Hgb 14.1 GM/dL (11.7-16.9) 12/31/18 14:15 Hct 43.4 % (35.4-49) 12/31/18 14:15 MCV 86.6 fl (80-96) 12/31/18 14:15 MCH 28.1 pg (25.7-33.7) 12/31/18 14:15 MCHC 32.4 g/dl (32.0-35.9) 12/31/18 14:15 RDW 14.5 % (11.9-15.9) 12/31/18 14:15 Plt Count 250 K/MM3 (134-434) 12/31/18 14:15 MPV 9.0 fl (7.5-11.1) 12/31/18 14:15 Sodium 139 mmol/L (136-145) 12/31/18 14:15 Potassium 4.3 mmol/L (3.5-5.1) 12/31/18 14:15 Chloride 104 mmol/L (98-107) 12/31/18 14:15 Carbon Dioxide 30 mmol/L (21-32) 12/31/18 14:15 Anion Gap 5 MMOL/L (8-16) L 12/31/18 14:15 BUN 13 mg/dL (7-18) 12/31/18 14:15 Creatinine 0.8 mg/dL (0.55-1.3) 12/31/18 14:15 Est GFR (CKD-EPI)AfAm 133.20 12/31/18 14:15 Est GFR (CKD-EPI)NonAf 114.93 12/31/18 14:15 Random Glucose 117 mg/dL (74-106) H 12/31/18 14:15 Calcium 9.5 mg/dL (8.5-10.1) 12/31/18 14:15 Total Bilirubin 0.4 mg/dL (0.2-1) 12/31/18 14:15 AST 15 U/L (15-37) 12/31/18 14:15 ALT 26 U/L (13-61) 12/31/18 14:15 Alkaline Phosphatase 77 U/L (45-117) 12/31/18 14:15 Total Protein 6.9 g/dl (6.4-8.2) 12/31/18 14:15 Albumin 3.9 g/dl (3.4-5.0) 12/31/18 14:15 RPR Titer Nonreactive (NONREACTIVE) 12/31/18 14:15 lab noted - Treatment Hospital Course: Detox Protocol Followed, Detoxed Safely, Responded well, Discharged Condition Good, Rehab Referral Accepted Patient has Accepted a Rehab Referral to: [facility] - Medication Discharge Medications: Ambulatory Orders NK [No Known Home Medication] 12/02/16 - Diagnosis (1) Alcohol dependence with uncomplicated withdrawal Status: Acute (2) Opioid dependence with withdrawal Status: Acute (3) Sedative, hypnotic or anxiolytic dependence with withdrawal, unspecified Status: Acute (4) Substance induced mood disorder Status: Suspected (5) Nicotine dependence Status: Acute Qualifiers: Nicotine product type: cigarettes Substance use status: in withdrawal Qualified Code(s): F17.213 - Nicotine dependence, cigarettes, with withdrawal - AMA Did Patient Leave Against Medical Advice: No
[2019-01-03] MEDS ORDERED: diazePAM 5 MG TABLET PO SCH (06:00)
[2019-01-03] MEDS ORDERED: METHADONE HCL 5 MG TABLET (FOR DETOX USE ONLY) PO ONE (06:00)
[2019-01-03] MEDS ORDERED: METHADONE (DETOX) 10 MG, METHADONE (DETOX) 5 MG PO ONE (10:00)
[2019-01-03] MEDS ORDERED: METHADONE HCL 10 MG TABLET (FOR DETOX USE ONLY) PO ONE (10:00)
[2019-01-04] MEDS ORDERED: METHADONE HCL 5 MG TABLET (FOR DETOX USE ONLY) PO ONE (06:00)
[2019-01-04] MEDS ORDERED: METHADONE HCL 10 MG TABLET (FOR DETOX USE ONLY) PO ONE (10:00)
[2019-01-05] MEDS ORDERED: METHADONE HCL 5 MG TABLET (FOR DETOX USE ONLY) PO ONE (06:00)
== END 2019-01-02 12:52 | disposition home or self-care (01) | DRG 897 ==
LOC: YASAS 12:03 → Y3N 14:29
PROVIDERS: ADMIT Surgery; ATTEND Surgery
PROC: HZ2ZZZZ Detoxification Services for Substance Abuse Treatment (ICD-10-PCS; principal; 2018-12-31)
DX: F11.23 Opioid dependence with withdrawal (principal); F10.230 Alcohol dependence with withdrawal, uncomplicated; F13.230 Sedative, hypnotic or anxiolytic dependence with withdrawal, uncomplicated; F12.20 Cannabis dependence, uncomplicated; F17.213 Nicotine dependence, cigarettes, with withdrawal; F19.24 Other psychoactive substance dependence with psychoactive substance-induced mood disorder; F41.0 Panic disorder [episodic paroxysmal anxiety]
CPT/HCPCS: 36415; 80053; 85027; 86593